=== PATIENT | female | born 1985 | race Caucasian/White ===

== ENCOUNTER 2017-05-29 19:29 | Emergency (ER) | payer OTHER ==
[2017-05-29 20:05] VITALS: TEMP 98
[2017-05-29] MEDS ORDERED: SODIUM CHLORIDE 0.9% 1,000 ML IV STA (20:33)
[2017-05-29] MEDS ORDERED: KETOROLAC 30 MG/ML 1 ML VIAL IVP STA (20:33)
--- NOTE | 2017-05-29 20:36 | ED ---
General Adult HPI - General Chief complaint: Extremity Injury, Lower Stated complaint: fall/knee & leg pain Time Seen by Provider: 05/29/17 20:28 Source: patient, RN notes reviewed Mode of arrival: ambulatory Limitations: no limitations - History of Present Illness Initial comments: 31-year-old female presents to the emergency Department chief complaint of right knee pain and redness. She did fall last Tuesday but she states she did not hit her right knee. She states now since yesterday her right knee is red and swollen it is hot to touch. She states she has pain with movement of the knee. Patient states she had something similar to this and right hip in the past that improved with steroids. She denies any abrasion or skin trauma. She states it hurts to move and it hurts to touch the area. Patient denies any surgeries on the knee in the past. Patient denies any other symptoms at this time. Patient denies any recent fever, chills, shortness of breath, chest pain, back pain, abdominal pain, nausea vomiting, numbness or tingling, dysuria or hematuria, constipation or diarrhea, headaches or visual changes, or any other current symptoms. - Related Data Home Medications Medication Instructions Recorded Confirmed Glycopyrrolate [Robinul Forte] 2 mg PO DAILY 05/29/17 05/29/17 QUEtiapine XR [SEROquel XR] 200 mg PO HS 05/29/17 05/29/17 busPIRone HCl [Buspar] 10 mg PO TID PRN 05/29/17 05/29/17 clonazePAM [KlonoPIN] 0.5 mg PO BID PRN 05/29/17 05/29/17 levETIRAcetam [Keppra] 500 mg PO Q12HR 05/29/17 05/29/17 Previous Rx's Medication Instructions Recorded Sulfamethox-Tmp 800-160Mg [Bactrim 2 each PO Q12HR #56 tab 05/29/17 DS 800-160 mg] Allergies Allergy/AdvReac Type Severity Reaction Status Date / Time amoxicillin Allergy Unknown Verified 05/29/17 21:14 Childhood Review of Systems ROS Statement: Those systems with pertinent positive or pertinent negative responses have been documented in the HPI. ROS Other: All systems not noted in ROS Statement are negative. Past Medical History Past Medical History: Seizure Disorder Additional Past Medical History / Comment(s): Chiari malformation History of Any Multi-Drug Resistant Organisms: None Reported Past Surgical History: Section, Cholecystectomy, Orthopedic Surgery Additional Past Surgical History / Comment(s): facial reconstruction, right arm surgery Past Psychological History: Anxiety Smoking Status: Current some day smoker Past Alcohol Use History: None Reported Past Drug Use History: None Reported General Exam - General Exam Comments Initial Comments: General: The patient is awake and alert, in no distress, and does not appear acutely ill. Neck: The neck is supple, there is no tenderness. Cardiovascular: There is a regular rate and rhythm. No murmur, rub or gallop is appreciated. Respiratory: Lungs are clear to auscultation, respirations are non-labored, breath sounds are equal. No wheezes, stridor, rales, or rhonchi. Musculoskeletal: Sensation intact with 2+ pulses throughout the right lower externa. Fund motion of right hip. Patient has pain with range of motion of the right knee. Does appear to be read swollen is warm to touch. No pain around the motion of the right ankle. There is appear to be an effusion. Neurological: CN II-XII intact, There are no obvious motor or sensory deficits. Coordination appears grossly intact. Speech is normal. Skin: Skin is warm and dry and no rashes or lesions are noted. Psychiatric: Normal mood and affect. Limitations: no limitations Course Vital Signs 05/29/17 20:00 Temperature 98.0 F Pulse Rate 118 H Respiratory 18 Rate Blood Pressure 138/82 Medical Decision Making - Medical Decision Making 31-year-old female presents with what appears to be right knee pain with swelling and redness. At this time patient's lab work and x-ray has been reviewed. At this time the patient was informed of the severity of the infection we did discuss that she needs IV antibiotics. We discussed that this could be a septic joint that she could lose her leg entirely or develop sepsis that could lead to . We discussed related to admit her for inpatient antibiotics. We discussed the case with on-call [facility] who does agree to the admission as well. The patient however will not listen to reason. She states that she has spread cases: She has no one to help her she states that she will be leaving. We did discuss these rest we did discuss the severity of her choice and she stated that she will be back tomorrow after she drops her at school. This time we did put her on Bactrim we discussed this is not strong enough and will not take care of the infection that she is going to leave the like her to have these something. We did discuss that we like her to return to the emergency department as soon as she is able. Patient stated that she understood the risks of leaving but she will still be bleeding at this time. - Lab Data Result diagrams: 05/29/17 20:50 05/29/17 20:50 Lab Results 05/29/17 05/29/17 Range/Units 20:50 20:50 WBC 16.5 H (3.8-10.6) k/uL RBC 4.76 (3.80-5.40) m/uL Hgb 13.2 (11.4-16.0) gm/dL Hct 40.4 (34.0-46.0) % MCV 85.0 (80.0-100.0) fL MCH 27.8 (25.0-35.0) pg MCHC 32.7 (31.0-37.0) g/dL RDW 13.0 (11.5-15.5) % Plt Count 325 (150-450) k/uL Neutrophils % 87 % Lymphocytes % 7 % Monocytes % 4 % Eosinophils % 1 % Basophils % 0 % Neutrophils # 14.3 H (1.3-7.7) k/uL Lymphocytes # 1.1 (1.0-4.8) k/uL Monocytes # 0.7 (0-1.0) k/uL Eosinophils # 0.2 (0-0.7) k/uL Basophils # 0.0 (0-0.2) k/uL ESR Cancelled Sodium 137 (137-145) mmol/L Potassium 4.1 (3.5-5.1) mmol/L Chloride 99 (98-107) mmol/L Carbon Dioxide 27 (22-30) mmol/L Anion Gap 11 mmol/L BUN 11 (7-17) mg/dL Creatinine 0.60 (0.52-1.04) mg/dL Est GFR (MDRD) Af Amer >60 (>60 ml/min/1.73 sqM) Est GFR (MDRD) Non-Af >60 (>60 ml/min/1.73 sqM) Glucose 128 H (74-99) mg/dL Calcium 9.7 (8.4-10.2) mg/dL Total Bilirubin 0.7 (0.2-1.3) mg/dL AST 21 (14-36) U/L ALT 30 (9-52) U/L Alkaline Phosphatase 85 (38-126) U/L C-Reactive Protein 182.8 H (<10.0) mg/L Total Protein 7.2 (6.3-8.2) g/dL Albumin 4.1 (3.5-5.0) g/dL - Radiology Data Radiology results: report reviewed, image reviewed Disposition Clinical Impression: Septic joint of right knee joint Disposition: Left Against Medical Advice Condition: Undetermined Additional Instructions: Please return to the emergency department. Prescriptions: Sulfamethox-Tmp 800-160Mg [Bactrim DS 800-160 mg] 2 each PO Q12HR #56 tab Referrals: Drew Felix DO [Primary Care Provider] - 1-2 days Time of Disposition: 22:41
[2017-05-29 21:09] LABS: Basophils % (A) 0 %; Eosinophils # (A) 0.2 k/uL (0-0.7); Eosinophils % (A) 1 %; HCT 40.4 % (34.0-46.0); HGB 13.2 gm/dL (11.4-16.0); Lymphocytes # (A) 1.1 k/uL (1.0-4.8); Lymphocytes % (A) 7 %; MCH 27.8 pg (25.0-35.0); MCHC 32.7 g/dL (31.0-37.0); Mean Platelet Volume 7.2; Monocytes # (A) 0.7 k/uL (0-1.0); Monocytes % (A) 4 %; Neutrophils # (A) 14.3 k/uL (1.3-7.7); Neutrophils % (A) 87 %; Platelet Count 325 k/uL (150-450); RBC 4.76 m/uL (3.80-5.40); WBC 16.5 k/uL (3.8-10.6)
[2017-05-29 21:31] LABS: ALT 30 U/L (9-52); AST 21 U/L (14-36); Albumin 4.1 g/dL (3.5-5.0); Alkaline Phosphatase 85 U/L (38-126); Anion Gap 11 mmol/L; Blood Urea Nitrogen 11 mg/dL (7-17); Calcium 9.7 mg/dL (8.4-10.2); Carbon Dioxide 27 mmol/L (22-30); Chloride 99 mmol/L (98-107); Glucose 128 mg/dL (74-99); Potassium 4.1 mmol/L (3.5-5.1); Sodium 137 mmol/L (137-145); Total Bilirubin 0.7 mg/dL (0.2-1.3); Total Protein 7.2 g/dL (6.3-8.2)
--- NOTE | 2017-05-29 21:39 | XR ---
EXAMINATION TYPE: XR knee complete RT DATE OF EXAM: 05/29/2017 CLINICAL HISTORY: Right knee pain after fall TECHNIQUE: Three views of the right knee are obtained. COMPARISON: None. FINDINGS: There is no acute fracture/dislocation evident in right knee. The tri-compartment joint s paces appear within normal limits. There is soft tissue swelling in the suprapatellar region overlyin g the quadriceps tendon with obscuration of the quadriceps tendon and suprapatellar joint effusion. IMPRESSION: 1. There is no acute fracture or dislocation in the right knee. 2. Soft tissue swelling over the quadriceps tendon. This may be related to soft tissue injury or tend inous injury. MR could be performed for further evaluation if clinically indicated. 3. Suprapatellar joint effusion.
[2017-05-29] MEDS ORDERED: ACETAMINOPHEN TAB 500 MG TAB PO STA (21:45)
[2017-05-29 21:49] LABS: C Reactive Protein 182.8 mg/L (<10.0)
[2017-05-29] MEDS ORDERED: HYDROmorphone 0.5 MG/0.5 ML SYRINGE IVP STA (22:20)
[2017-05-29] MEDS ORDERED: SULFAMETH-TMP DS STARTER PACK 2 TAB BTL PO STA (22:30)
[2017-05-29 22:50] VITALS: BP 140/82; PULSE 82; RESP 20
== END 2017-05-29 22:40 | disposition left against medical advice (07) ==
LOC: EC 19:29
DX: M00.9 Pyogenic arthritis, unspecified (principal); G40.909 Epilepsy, unspecified, not intractable, without status epilepticus; Q07.00 Arnold-Chiari syndrome without spina bifida or hydrocephalus; F41.9 Anxiety disorder, unspecified; F17.200 Nicotine dependence, unspecified, uncomplicated; Z79.899 Other long term (current) drug therapy; Z88.0 Allergy status to penicillin
CPT/HCPCS: 36415; 80053; 85652; 85025; 86140; 87040; 73562; 99283; 96374; 96361; J1885

== ENCOUNTER 2017-09-22 14:16 | Emergency (ER) | payer OTHER ==
[2017-09-22 14:26] VITALS: BP 116/80; PULSE 101; RESP 20; TEMP 97.6
[2017-09-22] MEDS ORDERED: ONDANSETRON 4 MG/2 ML VIAL IVP STA (14:29)
[2017-09-22] MEDS ORDERED: MORPHINE SULFATE 4 MG/ML SYRINGE IM STA (14:29)
[2017-09-22] MEDS ORDERED: KETOROLAC 60 MG/2 ML VIAL IM STA (14:29)
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
== END 2017-09-22 15:10 | disposition home or self-care (01) ==
LOC: EC 14:16
DX: L73.2 Hidradenitis suppurativa (principal); G40.909 Epilepsy, unspecified, not intractable, without status epilepticus; Q07.00 Arnold-Chiari syndrome without spina bifida or hydrocephalus; F41.9 Anxiety disorder, unspecified; Z87.891 Personal history of nicotine dependence; Z86.14 Personal history of Methicillin resistant Staphylococcus aureus infection; Z98.890 Other specified postprocedural states; Z79.899 Other long term (current) drug therapy
CPT/HCPCS: 87070; 87205; 99283; 10060; 96374; 96372 ×2; J2270; J2405; J1885

== ENCOUNTER 2017-11-26 06:32 | Observation (INO) | payer OTHER ==
[2017-11-26] MEDS ORDERED: MORPHINE SULFATE 4 MG/ML SYRINGE IVP STA ×2 (07:05→07:43)
[2017-11-26] MEDS ORDERED: KETOROLAC 30 MG/ML 1 ML VIAL IVP STA (07:22)
[2017-11-26 07:25] LABS: ALT 29 U/L (9-52); AST 46 U/L (14-36); Albumin 4.5 g/dL (3.5-5.0); Alkaline Phosphatase 80 U/L (38-126); Anion Gap 14 mmol/L; Blood Urea Nitrogen 16 mg/dL (7-17); Calcium 9.6 mg/dL (8.4-10.2); Carbon Dioxide 25 mmol/L (22-30); Chloride 100 mmol/L (98-107); Glucose 112 mg/dL (74-99); Magnesium 2.1 mg/dL (1.6-2.3); Potassium 3.8 mmol/L (3.5-5.1); Sodium 139 mmol/L (137-145); Total Bilirubin 0.6 mg/dL (0.2-1.3); Total Protein 7.8 g/dL (6.3-8.2)
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
[2017-11-26 07:29] LABS: Basophils % (A) 0 %; Eosinophils # (A) 0.1 k/uL (0-0.7); Eosinophils % (A) 1 %; HCT 40.2 % (34.0-46.0); HGB 13.1 gm/dL (11.4-16.0); Lymphocytes # (A) 0.8 k/uL (1.0-4.8); Lymphocytes % (A) 5 %; MCH 27.4 pg (25.0-35.0); MCHC 32.7 g/dL (31.0-37.0); MCV 83.8 fL (80.0-100.0); Mean Platelet Volume 7.7; Monocytes # (A) 0.6 k/uL (0-1.0); Monocytes % (A) 3 %; Neutrophils # (A) 15.4 k/uL (1.3-7.7); Neutrophils % (A) 90 %; Platelet Count 308 k/uL (150-450); RBC 4.79 m/uL (3.80-5.40); RDW 14.5 % (11.5-15.5); WBC 17.1 k/uL (3.8-10.6)
[2017-11-26 07:55] LABS: INR 1.1 (<1.2); Partial Thromboplastin Time 23.7 sec (22.0-30.0); Prothrombin Time 10.8 sec (9.0-12.0)
--- NOTE | 2017-11-26 08:05 | XR ---
EXAMINATION TYPE: XR chest 2V DATE OF EXAM: 11/26/2017 HISTORY: Chest Pain. REFERENCE: Previous study dated 02/28/2017. FINDINGS: Heart is mildly enlarged. Lungs are clear. Pleural spaces are clear. There is slight irregu larity of the left sixth rib. I could not exclude an undisplaced fracture. IMPRESSION: 1. NO ACTIVE CARDIOPULMONARY ABNORMALITY. 2. I COULD NOT EXCLUDE AN UNDISPLACED LEFT SIXTH RIB FRACTURE.
[2017-11-26 08:06] LABS: Troponin I 0.649 ng/mL (0.000-0.034)
--- NOTE | 2017-11-26 08:38 | ECHOF ---
Referral Reason:CP MEASUREMENTS -------- HEIGHT: 175.3 cm WEIGHT: 68.0 kg BP: IVSd: 1.2 cm (0.6 - 1.1) LVIDd: 3.3 cm (3.9 - 5.3) LVPWd: 1.3 cm (0.6 - 1.1) IVSs: 1.6 cm LVIDs: 3.1 cm LVPWs: 1.8 cm Ao Diam: 3.1 cm (2.0 - 3.7) AV Cusp: 2.2 cm (1.5 - 2.6) LA Diam: 3.4 cm (2.7 - 3.8) MV EXCURSION: 13.536 mm (> 18.000) MV EF SLOPE: 60 mm/s (70 - 150) EPSS: 0.4 cm MV E Albert: 0.64 m/s MV DecT: 167 ms MV A Albert: 0.55 m/s MV E/A Ratio: 1.15 RAP: 5.00 mmHg RVSP: 17.97 mmHg FINDINGS -------- Sinus rhythm. This was a technically good study. The left ventricular size is normal. There is borderline concentric left ventricular hypertrophy. Overall left ventricular systolic function is normal with, an EF between 55 - 60 %. The right ventricle is normal in size and function. The left atrium is normal in size. The right atrium is normal in size. The aortic valve is trileaflet, and appears structurally normal. No aortic stenosis or regurgitation. The mitral valve leaflets are mildly thickened. There is trace mitral regurgitation. Trace tricuspid regurgitation present. The right ventricular systolic pressure, as measured by Dopp ler, is 17.97mmHg. Trace/mild (physiologic) pulmonic regurgitation. The aortic root size is normal. Normal inferior vena cava with normal inspiratory collapse consistent with estimated right atrial pre ssure of 5 mmHg. There is a small, generalized pericardial effusion present. CONCLUSIONS -------- 1. Sinus rhythm. 2. This was a technically good study. 3. The left ventricular size is normal. 4. There is borderline concentric left ventricular hypertrophy. 5. Overall left ventricular systolic function is normal with, an EF between 55 - 60 %. 6. The right ventricle is normal in size and function. 7. The left atrium is normal in size. 8. The right atrium is normal in size. 9. The aortic valve is trileaflet, and appears structurally normal. No aortic stenosis or regurgitati on. 10. The mitral valve leaflets are mildly thickened. 11. There is trace mitral regurgitation. 12. Trace tricuspid regurgitation present. 13. The right ventricular systolic pressure, as measured by Doppler, is 17.97mmHg. 14. Trace/mild (physiologic) pulmonic regurgitation. 15. The aortic root size is normal. 16. Normal inferior vena cava with normal inspiratory collapse consistent with estimated right atrial pressure of 5 mmHg. 17. There is a small, generalized pericardial effusion present. HUMAN RESOURCES TALENT MANAGER: Carli French RDCS
[2017-11-26] MEDS ORDERED: NALOXONE 0.4 MG/ML 1 ML VIAL IV PRN (09:37)
[2017-11-26] MEDS ORDERED: ONDANSETRON 4 MG/2 ML VIAL IVP PRN (09:37)
[2017-11-26] MEDS: MORPHINE SULFATE 4 MG/ML SYRINGE IV PRN ×2 (09:49→13:16)
[2017-11-26] MEDS ORDERED: ACETAMINOPHEN TAB 500 MG TAB PO STA (11:42)
[2017-11-26] MEDS: IBUPROFEN 600 MG TAB PO SCH ×3 (11:47→23:53)
[2017-11-26 13:59] LABS: Troponin I 0.753 ng/mL (0.000-0.034)
[2017-11-26 14:00] LABS: Creatine Kinase MB 4.3 ng/mL (0.0-2.4)
[2017-11-26 14:21] LABS: Appearance,Urine Turbid (Clear); Bilirubin,Urine 2+ (Negative); Blood,Urine Moderate (Negative); Color,Urine Dark Brown; Glucose,Urine (UA) Negative (Negative); Ketones,Urine 2+ (Negative); Leukocyte Esterase,Urine Trace (Negative); Mucus,Urine Many /hpf; Nitrite,Urine Negative (Negative); PH, Urine 6.5 (5.0-8.0); Protein,Urine 2+ (Negative); RBC,Urine 30 /hpf (0-5); Specific Gravity,Urine 1.038 (1.001-1.035); Squamous Epithelial Cell,Urine 38 /hpf (0-4); Urobilinogen,Urine >12.0 mg/dL (<2.0); WBC,Urine 20 /hpf (0-5)
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
[2017-11-26] MEDS ORDERED: SODIUM CHLORIDE 0.9% 1,000 ML IV ONE (14:35)
[2017-11-26 14:36] LABS: Amphetamine Screen,Urine Detected (NotDetected); Barbiturate Screen,Urine Not Detected (NotDetected); Benzodiazepines Screen,Urine Not Detected (NotDetected); Cocaine Screen,Urine Not Detected (NotDetected); Methadone Screen, Urine Not Detected (NotDetected); Opiate Screen,Urine Detected (NotDetected); Oxycodone Screen, Urine Not Detected (NotDetected); Phencyclidine Screen,Urine Not Detected (NotDetected); Tricyclic Antidepressant,Urine Not Detected (NotDetected); Urn Cannabinoid Scrn Detected (NotDetected)
[2017-11-26] MEDS ORDERED: PANTOPRAZOLE 40 MG TABLET PO STA (14:51)
[2017-11-26] MEDS: SODIUM CHLORIDE 0.9% 1,000 ML IV SCH ×2 (15:35→23:52)
--- NOTE | 2017-11-26 17:20 | CONS ---
CONSULTATION Mrs. Wilson is a 32-year-old female who presented to the emergency room with symptoms of chest discomfort. She had recent upper respiratory infection, has been complaining of chest discomfort on and off for the last few days, much worse now, worse supine and better sitting up and has some respirophasic pattern to it. The patient has a history of chronic pain. She had history of narcotic abuse and traumatic brain injury in the past. She denies any change in her breathing. She denies any dizziness or palpitation. She denies any peripheral edema. No PND. No orthopnea. Her coronary risk factors are negative for diabetes or hypertension. She is a smoker. MEDICATION: Trazodone and Seroquel. REVIEW OF SYSTEMS: RESPIRATORY SYSTEM: She had dyspnea on exertion. She had recent upper respiratory infection. GI SYSTEM: No recent GI bleed. No peptic ulcer disease. SYSTEM: No dysuria or hematuria. NERVOUS SYSTEM: No history of stroke or seizure. PHYSICAL EXAMINATION: A 32-year-old female, alert, oriented, in no apparent distress. Blood pressure 108/50 with a heart in 90s. HEAD: Normocephalic. EYES: Sclerae anicteric. NECK: Good upstroke. No bruit. No jugular venous distention. LUNGS: Clear to auscultation. HEART: Regular rate and rhythm. S1, S2. No S3. No rub. ABDOMEN: Soft, nontender. Positive bowel sounds. No organomegaly. EXTREMITIES: No edema. Intact pulses. LAB DATA: Lab data revealed a hemoglobin 13.1, BUN and creatinine 16 and 0.55. Troponin 0.649 and 0.753. She had amphetamine, methamphetamine and marijuana positive screen. Her EKG revealed sinus mechanism with [place] depression, ST elevation consistent with acute pericarditis. Her echocardiogram revealed a preserved left ventricular size and systolic function with no segmental wall motion abnormality. IMPRESSION: 1. Acute pericarditis. 2. Chronic tobacco use. 3. History of substance abuse. RECOMMENDATION: Patient will be started on nonsteroidal as well as colchicine. I will obtain an evaluation of her sedimentation rate. We will continue to follow her symptoms and if she remains stable I would expect she should be able to be discharged home in the next 24 hours. Thank you for this consult. We will follow with you. MMODL / IJN: [id number] /
[2017-11-26 17:27] LABS: Amorphous Sediment,Urine Rare /hpf; Appearance,Urine Turbid (Clear); Bilirubin,Urine 1+ (Negative); Blood,Urine Negative (Negative); Color,Urine Yellow; Glucose,Urine (UA) Negative (Negative); Ketones,Urine Trace (Negative); Leukocyte Esterase,Urine Negative (Negative); Mucus,Urine Rare /hpf; Nitrite,Urine Negative (Negative); PH, Urine 6.5 (5.0-8.0); Protein,Urine 1+ (Negative); RBC,Urine 1 /hpf (0-5); Specific Gravity,Urine 1.029 (1.001-1.035); Squamous Epithelial Cell,Urine 1 /hpf (0-4)
[2017-11-26 19:47] LABS: Creatine Kinase MB 3.8 ng/mL (0.0-2.4); Troponin I 0.623 ng/mL (0.000-0.034)
[2017-11-26 19:51] VITALS: BMI 22.1
[2017-11-26] MEDS ORDERED: QUEtiapine 50 MG TAB PO PRN (20:15)
[2017-11-26] MEDS: PANTOPRAZOLE 40 MG TABLET PO SCH (20:57)
[2017-11-26] MEDS: COLCHICINE 0.6 MG EACH PO SCH (20:58)
[2017-11-26] MEDS ORDERED: traZODone HCL 50 MG TAB PO SCH (21:00)
[2017-11-27] MEDS: IBUPROFEN 600 MG TAB PO SCH ×2 (06:07→10:49)
[2017-11-27] MEDS: PANTOPRAZOLE 40 MG TABLET PO SCH (06:09)
[2017-11-27 06:53] LABS: Anion Gap 9 mmol/L; Blood Urea Nitrogen 12 mg/dL (7-17); Calcium 8.7 mg/dL (8.4-10.2); Carbon Dioxide 21 mmol/L (22-30); Chloride 110 mmol/L (98-107); Glucose 112 mg/dL (74-99); Sodium 140 mmol/L (137-145)
[2017-11-27 07:21] LABS: ALT 66 U/L (9-52); AST 64 U/L (14-36); Alkaline Phosphatase 156 U/L (38-126); Anion Gap 9 mmol/L; Blood Urea Nitrogen 10 mg/dL (7-17); Calcium 8.6 mg/dL (8.4-10.2); Carbon Dioxide 22 mmol/L (22-30); Chloride 108 mmol/L (98-107); Glucose 113 mg/dL (74-99); Potassium 3.4 mmol/L (3.5-5.1); Sodium 139 mmol/L (137-145); Total Bilirubin 0.4 mg/dL (0.2-1.3); Total Protein 5.7 g/dL (6.3-8.2)
[2017-11-27 07:36] LABS: Basophils % (A) 0 %; Eosinophils # (A) 0.1 k/uL (0-0.7); Eosinophils % (A) 1 %; HCT 31.3 % (34.0-46.0); HGB 10.3 gm/dL (11.4-16.0); Lymphocytes # (A) 0.8 k/uL (1.0-4.8); Lymphocytes % (A) 6 %; MCH 27.5 pg (25.0-35.0); MCHC 33.1 g/dL (31.0-37.0); MCV 83.3 fL (80.0-100.0); Mean Platelet Volume 7.5; Monocytes # (A) 0.5 k/uL (0-1.0); Monocytes % (A) 3 %; Neutrophils # (A) 12.2 k/uL (1.3-7.7); Neutrophils % (A) 89 %; Platelet Count 217 k/uL (150-450); RBC 3.75 m/uL (3.80-5.40); RDW 14.4 % (11.5-15.5); WBC 13.6 k/uL (3.8-10.6)
[2017-11-27] MEDS: COLCHICINE 0.6 MG EACH PO SCH (08:33)
[2017-11-27] MEDS: SODIUM CHLORIDE 0.9% 1,000 ML IV SCH (08:33)
--- NOTE | 2017-11-27 11:27 | P.PN ---
Subjective Mrs. Wilson is seen and examined sleeping in bed. Respirations are equal and unlabored. Upon waking her up she c/o ongoing pain in the chest that is intermittent and unrelieved with current regimen. Her pain continues to be worse while she is lying down. Mild relief when she leans forward. Echocardiogram obtained yesterday reveals preserved left ventricular systolic function with ejection fraction 55-60%, aortic valve trileaflet and structurally normal, mitral valve mildly thickened, trace MR and trace TR noted. Small generalized pericardial effusion. Laboratory data reviewed, hemoglobin 10.3, platelets 217, sodium 139, potassium 3.4, creatinine 0.4, AST 64, ALP 66, alk phos 156, ESR 49. Blood pressure this morning 90/55 heart rate 104 afebrile maintaining oxygen saturation on room air. Objective - Vital Signs Vital signs: Vital Signs Temp 97.3 F L 11/27/17 08:44 Pulse 104 H 11/27/17 08:44 Resp 18 11/27/17 08:44 BP 90/55 11/27/17 08:44 Pulse Ox 98 11/27/17 08:44 Intake & Output 11/26/17 11/27/17 11/27/17 18:59 06:59 18:59 Intake Total 1000 Balance 1000 Weight 66.3 kg Intake: Amount of Fluid Infused ( 1000 ml) Other: Voiding Method Toilet # Voids 1 - Exam GENERAL: Well-appearing, well-nourished and in no acute distress. NECK: Supple without JVD or thyromegaly. LUNGS: Breath sounds clear to auscultation bilaterally. Respiration equal and unlabored. No wheezes, rales or rhonchi. HEART: Regular rate and rhythm without murmurs, rubs or gallops. S1 and S2 heard. EXTREMITIES: Normal range of motion, no edema. No clubbing or cyanosis. Peripheral pulses intact. - Labs CBC & Chem 7: 11/27/17 07:03 11/27/17 07:03 Labs: Abnormal Lab Results - Last 24 Hours (Table) 11/26/17 11/26/17 11/26/17 Range/Units 06:48 12:50 14:06 WBC (3.8-10.6) k/uL RBC (3.80-5.40) m/uL Hgb (11.4-16.0) gm/dL Hct (34.0-46.0) % Neutrophils # (1.3-7.7) k/uL Lymphocytes # (1.0-4.8) k/uL ESR 49 H (0-20) mm/hr Potassium (3.5-5.1) mmol/L Chloride (98-107) mmol/L Carbon Dioxide (22-30) mmol/L Creatinine (0.52-1.04) mg/dL Glucose (74-99) mg/dL AST (14-36) U/L ALT (9-52) U/L Alkaline Phosphatase (38-126) U/L CK-MB (CK-2) 4.3 H* (0.0-2.4) ng/mL Troponin I 0.753 H* (0.000-0.034) ng/mL Total Protein (6.3-8.2) g/dL Albumin (3.5-5.0) g/dL Urine Appearance Turbid H (Clear) Ur Specific Newman 1.038 H (1.001-1.035) Urine Protein 2+ H (Negative) Urine Ketones 2+ H (Negative) Urine Blood Moderate H (Negative) Urine Bilirubin 2+ H (Negative) Ur Leukocyte Esterase Trace H (Negative) Urine RBC 30 H (0-5) /hpf Urine WBC 20 H (0-5) /hpf Ur Squamous Epith Cells 38 H (0-4) /hpf Amorphous Sediment (None) /hpf Urine Mucus Many H (None) /hpf Urine Opiates Screen Detected H (NotDetected) Ur Amphetamines Screen Detected H (NotDetected) U Methamphetamines Scrn Detected H (NotDetected) U Marijuana (THC) Screen Detected H (NotDetected) 11/26/17 11/26/17 11/27/17 Range/Units 17:00 18:49 05:54 WBC (3.8-10.6) k/uL RBC (3.80-5.40) m/uL Hgb (11.4-16.0) gm/dL Hct (34.0-46.0) % Neutrophils # (1.3-7.7) k/uL Lymphocytes # (1.0-4.8) k/uL ESR (0-20) mm/hr Potassium (3.5-5.1) mmol/L Chloride 110 H (98-107) mmol/L Carbon Dioxide 21 L (22-30) mmol/L Creatinine 0.40 L (0.52-1.04) mg/dL Glucose 112 H (74-99) mg/dL AST (14-36) U/L ALT (9-52) U/L Alkaline Phosphatase (38-126) U/L CK-MB (CK-2) 3.8 H* (0.0-2.4) ng/mL Troponin I 0.623 H* (0.000-0.034) ng/mL Total Protein (6.3-8.2) g/dL Albumin (3.5-5.0) g/dL Urine Appearance Turbid H (Clear) Ur Specific Newman (1.001-1.035) Urine Protein 1+ H (Negative) Urine Ketones Trace H (Negative) Urine Blood (Negative) Urine Bilirubin 1+ H (Negative) Ur Leukocyte Esterase (Negative) Urine RBC (0-5) /hpf Urine WBC (0-5) /hpf Ur Squamous Epith Cells (0-4) /hpf Amorphous Sediment Rare H (None) /hpf Urine Mucus Rare H (None) /hpf Urine Opiates Screen (NotDetected) Ur Amphetamines Screen (NotDetected) U Methamphetamines Scrn (NotDetected) U Marijuana (THC) Screen (NotDetected) 11/27/17 11/27/17 Range/Units 07:03 07:03 WBC 13.6 H (3.8-10.6) k/uL RBC 3.75 L (3.80-5.40) m/uL Hgb 10.3 L (11.4-16.0) gm/dL Hct 31.3 L (34.0-46.0) % Neutrophils # 12.2 H (1.3-7.7) k/uL Lymphocytes # 0.8 L (1.0-4.8) k/uL ESR (0-20) mm/hr Potassium 3.4 L (3.5-5.1) mmol/L Chloride 108 H (98-107) mmol/L Carbon Dioxide (22-30) mmol/L Creatinine 0.40 L (0.52-1.04) mg/dL Glucose 113 H (74-99) mg/dL AST 64 H (14-36) U/L ALT 66 H (9-52) U/L Alkaline Phosphatase 156 H (38-126) U/L CK-MB (CK-2) (0.0-2.4) ng/mL Troponin I (0.000-0.034) ng/mL Total Protein 5.7 L (6.3-8.2) g/dL Albumin 3.0 L (3.5-5.0) g/dL Urine Appearance (Clear) Ur Specific Newman (1.001-1.035) Urine Protein (Negative) Urine Ketones (Negative) Urine Blood (Negative) Urine Bilirubin (Negative) Ur Leukocyte Esterase (Negative) Urine RBC (0-5) /hpf Urine WBC (0-5) /hpf Ur Squamous Epith Cells (0-4) /hpf Amorphous Sediment (None) /hpf Urine Mucus (None) /hpf Urine Opiates Screen (NotDetected) Ur Amphetamines Screen (NotDetected) U Methamphetamines Scrn (NotDetected) U Marijuana (THC) Screen (NotDetected) Assessment and Plan Assessment: ASSESSMENT Acute pericarditis Chronic nicotine dependence History of substance abuse PLAN Stable from a cardiac perspective. Echocardiogram reveals preserved LV systolic function. No evidence of valvular heart disease. She should be discharged home on colchicine for the next 3-4 weeks as well as anti- inflammatories as needed for pain relief. Follow-up with Dr. Quinn in 2-3 weeks. Nurse Practitioner note has been reviewed, I agree with a documented findings and plan of care. Patient was seen and examined.
[2017-11-27 11:42] VITALS: BP 95/57; PULSE 98; RESP 16; TEMP 98.8
--- NOTE | 2017-11-27 12:30 | P.DS ---
Providers Date of admission: 11/26/17 09:37 Expected date of discharge: 11/27/17 Attending physician: Musa Ferguson Consults: 11/26/17 09:37 Consult Physician Routine Consulting Provider: Aiden Quinn Consult Reason/Comments: Acute pericarditis, myocarditis Do you want consulting provider notified?: Yes Primary care physician: Drew Felix - Discharge Diagnosis(es) (1) Acute pericarditis Current Visit: Yes Status: Acute (2) Leukocytosis Current Visit: Yes Status: Acute (3) Abnormal urinalysis Current Visit: Yes Status: Acute (4) Narcotic abuse, continuous Current Visit: Yes Status: Acute (5) History of heroin abuse Current Visit: Yes Status: Acute Hospital Course: The patient is a 32-year-old female with a history of fibromyalgia chronic pain heroin and narcotic abuse and traumatic brain injury presented to the ER with chief complaint of chest pain and was subsequently admitted with acute pericarditis triggered by a viral URI. On admission the patient had diffuse ST elevation most noticeable in the left precordial leads and had elevated cardiac troponins, 2-D echocardiogram showed normal ejection fraction without small pericardial effusion. She was initially started on aspirin, and morphine but her regimen was changed to colchicine and ibuprofen. She was monitored for the next 24 hours and did well with no complications. She was subsequently discharged home in stable condition with a prescription for colchicine and instructed to follow-up with Dr. Qunin in 3 weeks. This discharge process took approximately 30 minutes. New prescriptions at discharge Colchicine 0.6 g by mouth twice a day #60 Patient Condition at Discharge: Stable Plan - Discharge Summary New Discharge Prescriptions: New Colchicine [Colcrys] 0.6 mg PO BID #60 each No Action traZODone HCL 150 mg PO HS QUEtiapine [SEROquel] 50 mg PO HS PRN PRN Reason: Insomnia Discharge Medication List QUEtiapine [SEROquel] 50 mg PO HS PRN 11/26/17 [History] traZODone HCL 150 mg PO HS 11/26/17 [History] Colchicine [Colcrys] 0.6 mg PO BID #60 each 11/27/17 [Rx] Follow up Appointment(s)/Referral(s): Aiden Quinn MD [STAFF PHYSICIAN] - 3 Weeks Drew Felix DO [Primary Care Provider] - 1-2 days Discharge Disposition: HOME SELF-CARE
== END 2017-11-27 14:54 | disposition home or self-care (01) ==
LOC: EC 06:32 → 6SEL 09:37
PROVIDERS: ADMIT Internal Medicine; ATTEND Internal Medicine
DX: I30.9 Acute pericarditis, unspecified (principal); D72.829 Elevated white blood cell count, unspecified; R82.90 Unspecified abnormal findings in urine; F11.10 Opioid abuse, uncomplicated; R79.89 Other specified abnormal findings of blood chemistry; G89.29 Other chronic pain; F41.9 Anxiety disorder, unspecified; M79.7 Fibromyalgia; Z90.49 Acquired absence of other specified parts of digestive tract; F17.200 Nicotine dependence, unspecified, uncomplicated; Z87.820 Personal history of traumatic brain injury; Z79.899 Other long term (current) drug therapy; Z86.14 Personal history of Methicillin resistant Staphylococcus aureus infection
CPT/HCPCS: 99285; 96374 ×2; 96375 ×2; 96376 ×4; 36415; 93005; 93306; 80053 ×2; 80048; 85652; 82550; 82553; 83605; 83735 ×2; 84484; 85025 ×2; 85610; 85730; 81001; 81025; 87040; 80306; 71046; G0378 ×2; J2270; J1885

== ENCOUNTER 2017-12-04 16:42 | Emergency (ER) | payer OTHER ==
[2017-12-04 16:56] VITALS: BP 111/70; PULSE 99; RESP 18; TEMP 97.4
[2017-12-04] MEDS ORDERED: TOPICAL SKIN ADHESIVE 1 EACH AMP TOPICAL ONE (17:07)
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
== END 2017-12-04 17:40 | disposition home or self-care (01) ==
LOC: EC 16:42
DX: S61.012A Laceration without foreign body of left thumb without damage to nail, initial encounter (principal); F41.9 Anxiety disorder, unspecified; F17.200 Nicotine dependence, unspecified, uncomplicated; Z86.14 Personal history of Methicillin resistant Staphylococcus aureus infection; Z79.899 Other long term (current) drug therapy; W26.8XXA Contact with other sharp object(s), not elsewhere classified, initial encounter; Y93.89 Activity, other specified
CPT/HCPCS: 12001; 99282

== ENCOUNTER 2018-02-23 09:26 | Emergency (ER) | payer OTHER ==
[2018-02-23 09:33] VITALS: BP 142/95; PULSE 107; RESP 16; TEMP 98.3
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
--- NOTE | 2018-02-23 10:27 | XR ---
EXAMINATION TYPE: XR foot complete RT DATE OF EXAM: 02/23/2018 CLINICAL HISTORY: Right foot pain after a fall TECHNIQUE: Frontal, lateral, and oblique images of the right foot are obtained. COMPARISON: None FINDINGS: There is no acute fracture/dislocation evident in the right foot. The joint spaces in the right foot appear within normal limits. The overlying soft tissue appears unremarkable. IMPRESSION: There is no acute fracture or dislocation in the right foot.
== END 2018-02-23 10:35 | disposition home or self-care (01) ==
LOC: EC 09:26
DX: S93.601A Unspecified sprain of right foot, initial encounter (principal); F17.200 Nicotine dependence, unspecified, uncomplicated; Z86.14 Personal history of Methicillin resistant Staphylococcus aureus infection; W10.8XXA Fall (on) (from) other stairs and steps, initial encounter; Y93.89 Activity, other specified; Y92.89 Other specified places as the place of occurrence of the external cause
CPT/HCPCS: 99283

== ENCOUNTER 2018-05-14 18:40 | Inpatient (IN) | payer OTHER ==
[2018-05-14] MEDS ORDERED: SODIUM CHLORIDE 0.9% 1,000 ML IV STA (19:02)
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
[2018-05-14 19:44] LABS: Basophils % (A) 0 %; Eosinophils # (A) 0.3 k/uL (0-0.7); Eosinophils % (A) 2 %; HCT 42.6 % (34.0-46.0); HGB 14.1 gm/dL (11.4-16.0); Lymphocytes # (A) 1.1 k/uL (1.0-4.8); Lymphocytes % (A) 9 %; MCH 27.6 pg (25.0-35.0); MCHC 33.1 g/dL (31.0-37.0); MCV 83.4 fL (80.0-100.0); Mean Platelet Volume 6.8; Monocytes # (A) 0.2 k/uL (0-1.0); Monocytes % (A) 2 %; Neutrophils # (A) 11.1 k/uL (1.3-7.7); Neutrophils % (A) 87 %; Platelet Count 280 k/uL (150-450); RBC 5.11 m/uL (3.80-5.40); RDW 15.3 % (11.5-15.5); WBC 12.8 k/uL (3.8-10.6)
[2018-05-14] MEDS ORDERED: VANCOMYCIN IV PER PHARMACY 1 EACH MISC MISCELLANE PRN (19:44)
[2018-05-14] MEDS ORDERED: PIPERACILLIN-TAZOBACTAM 3.375 GM in SODIUM CHLORIDE 0.9% 100 ML IVPB SCH (19:45)
[2018-05-14] MEDS ORDERED: CLINDAMYCIN 600 MG in DEXTROSE 5% IN WATER 50 ML IVPB SCH ×2 (19:45)
[2018-05-14] MEDS ORDERED: CLINDAMYCIN 600 MG in DEXTROSE 5% IN WATER 50 ML IVPB ONE ×2 (20:00)
[2018-05-14] MEDS ORDERED: PIPERACILLIN-TAZOBACTAM 3.375 GM in SODIUM CHLORIDE 0.9% 100 ML IVPB ONE (20:00)
--- NOTE | 2018-05-14 20:08 | XR ---
EXAMINATION TYPE: XR wrist complete RT DATE OF EXAM: 05/14/2018 CLINICAL HISTORY: Wrist pain TECHNIQUE: Frontal, lateral and oblique images of the right wrist are obtained. COMPARISON: None FINDINGS: There is no acute fracture/dislocation. Joint spaces are preserved. The overlying soft ti ssue appears unremarkable. IMPRESSION: No acute fracture or dislocation.
[2018-05-14 20:10] LABS: Appearance,Urine Cloudy (Clear); Bacteria,Urine Rare /hpf; Bilirubin,Urine Negative (Negative); Blood,Urine Negative (Negative); Color,Urine Light Yellow; Glucose,Urine (UA) Negative (Negative); Ketones,Urine Negative (Negative); Leukocyte Esterase,Urine Negative (Negative); Nitrite,Urine Negative (Negative); PH, Urine 6.5 (5.0-8.0); Protein,Urine Negative (Negative); Specific Gravity,Urine 1.007 (1.001-1.035); Squamous Epithelial Cell,Urine 8 /hpf (0-4); Urobilinogen,Urine <2.0 mg/dL (<2.0)
--- NOTE | 2018-05-14 20:11 | XR ---
EXAMINATION TYPE: XR forearm LT DATE OF EXAM: 05/14/2018 CLINICAL HISTORY: Abscess on left elbow, elbow pain TECHNIQUE: Two views of the left forearm are obtained. COMPARISON: None. FINDINGS: There is no acute fracture or dislocation. No radiopaque foreign bodies. No subcutaneous a ir. No evidence of osseous erosion. IMPRESSION: No acute fracture or dislocation.
--- NOTE | 2018-05-14 20:12 | XR ---
EXAMINATION TYPE: XR hand complete LT DATE OF EXAM: 05/14/2018 CLINICAL HISTORY: Left hand abscess, left hand pain TECHNIQUE: Frontal, lateral and oblique images of the left hand are obtained. COMPARISON: None. FINDINGS: No acute fracture or dislocation. No radiopaque foreign bodies or soft tissue swelling. No osseous erosion. No subcutaneous air. IMPRESSION: No acute fracture or dislocation. No concerning findings of infection.
[2018-05-14 20:24] LABS: ALT 64 U/L (9-52); AST 41 U/L (14-36); Albumin 4.1 g/dL (3.5-5.0); Alkaline Phosphatase 102 U/L (38-126); Anion Gap 8 mmol/L; Blood Urea Nitrogen 12 mg/dL (7-17); Calcium 9.6 mg/dL (8.4-10.2); Carbon Dioxide 25 mmol/L (22-30); Chloride 103 mmol/L (98-107); Glucose 96 mg/dL (74-99); Potassium 4.5 mmol/L (3.5-5.1); Sodium 136 mmol/L (137-145); Total Bilirubin 0.5 mg/dL (0.2-1.3); Total Protein 7.7 g/dL (6.3-8.2)
[2018-05-14] MEDS ORDERED: VANCOMYCIN 1,500 MG in SODIUM CHLORIDE 0.9% 250 ML IVPB ONE (20:30)
[2018-05-14] MEDS ORDERED: NALOXONE 0.4 MG/ML 1 ML VIAL IV PRN (21:42)
[2018-05-14] MEDS ORDERED: ACETAMINOPHEN TAB 325 MG TAB PO PRN (21:42)
[2018-05-14] MEDS ORDERED: METHADONE 10 MG TAB PO PRN (21:51)
[2018-05-14] MEDS: SODIUM CHLORIDE 0.9% 1,000 ML IV SCH (22:19)
[2018-05-14 23:20] VITALS: BMI 22.8
[2018-05-15] MEDS: CLINDAMYCIN 600 MG in DEXTROSE 5% IN WATER 50 ML IVPB SCH ×4 (04:36→13:38)
[2018-05-15] MEDS: VANCOMYCIN 1,250 MG in SODIUM CHLORIDE 0.9% 250 ML IVPB SCH ×3 (04:36→21:19)
[2018-05-15] MEDS: PIPERACILLIN-TAZOBACTAM 3.375 GM in SODIUM CHLORIDE 0.9% 100 ML IVPB SCH ×3 (05:50→21:19)
[2018-05-15 06:33] LABS: Basophils % (A) 0 %; Eosinophils # (A) 0.2 k/uL (0-0.7); Eosinophils % (A) 1 %; HCT 39.1 % (34.0-46.0); HGB 12.8 gm/dL (11.4-16.0); Lymphocytes # (A) 1.7 k/uL (1.0-4.8); Lymphocytes % (A) 13 %; MCH 27.6 pg (25.0-35.0); MCHC 32.7 g/dL (31.0-37.0); MCV 84.5 fL (80.0-100.0); Monocytes # (A) 0.3 k/uL (0-1.0); Monocytes % (A) 3 %; Neutrophils # (A) 10.2 k/uL (1.3-7.7); Neutrophils % (A) 82 %; Platelet Count 296 k/uL (150-450); RBC 4.63 m/uL (3.80-5.40); RDW 15.2 % (11.5-15.5); WBC 12.5 k/uL (3.8-10.6)
[2018-05-15 06:48] LABS: ALT 50 U/L (9-52); AST 31 U/L (14-36); Albumin 3.5 g/dL (3.5-5.0); Alkaline Phosphatase 89 U/L (38-126); Anion Gap 7 mmol/L; Blood Urea Nitrogen 11 mg/dL (7-17); Carbon Dioxide 23 mmol/L (22-30); Chloride 108 mmol/L (98-107); Glucose 107 mg/dL (74-99); Potassium 4.4 mmol/L (3.5-5.1); Sodium 138 mmol/L (137-145); Total Bilirubin 0.5 mg/dL (0.2-1.3); Total Protein 6.7 g/dL (6.3-8.2)
[2018-05-15] MEDS: METHADONE 10 MG TAB PO SCH (10:14)
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
[2018-05-15 12:33] LABS: Bilirubin, Delta 0.1 mg/dL (0.0-0.2); Bilirubin,Unconjugated 0.3 mg/dL (0.0-1.1); Total Bilirubin 0.4 mg/dL (0.2-1.3)
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
[2018-05-15] MEDS: NICOTINE 21MG/24HR PATCH TRANSDERM SCH (13:38)
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
[2018-05-15] MEDS: FAMOTIDINE 20 MG TAB PO SCH (21:19)
[2018-05-15] MEDS: SODIUM CHLORIDE 0.9% 1,000 ML IV SCH (21:19)
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
[2018-05-16] MEDS ORDERED: VANCOMYCIN TROUGH DUE 1 EACH MISC MISCELLANE ONE (04:00)
[2018-05-16] MEDS: VANCOMYCIN 1,250 MG in SODIUM CHLORIDE 0.9% 250 ML IVPB SCH ×3 (05:08→20:15)
[2018-05-16] MEDS: PIPERACILLIN-TAZOBACTAM 3.375 GM in SODIUM CHLORIDE 0.9% 100 ML IVPB SCH ×3 (05:08→21:43)
[2018-05-16] MEDS: METHADONE 10 MG TAB PO SCH (08:17)
[2018-05-16] MEDS: FAMOTIDINE 20 MG TAB PO SCH ×2 (08:18→20:16)
--- NOTE | 2018-05-16 10:47 | P.PN ---
Subjective Progress Note Date: 05/16/18 CHIEF COMPLAINT: Abscess HISTORY OF PRESENT ILLNESS: 32-year-old female who presented to the emergency room due to abscesses on bilateral arms. Patient has a history of IV drug abuse. She reports she goes to [place] daily for Methadone. She has an abscess to her left antecubital area, top of left hand, and right wrist. Patient reports some purulent drainage to left hand prior to admission. Patient examined at the bedside. Patient states her pain is tolerable at this time. She remains on IV antibiotics. Infectious disease is following. She is scheduled for I&D of bilateral arm abscesses today. PHYSICAL EXAM: VITAL SIGNS: Currently stable. GENERAL: Well-developed in no acute distress. HEENT: No sclera icterus. Extraocular movements grossly intact. Moist buccal mucosa. Head is atraumatic, normocephalic. Hears conversational speech. No nasal drainage. NECK: Supple without lymphadenopathy. CHEST: Non-labored respirations and equal bilateral excursions. CARDIOVASCULAR: Regular rate with regular rhythm. Palpable 2+ radial pulses. ABDOMEN: Soft. Nondistended. No peritonitis. No abdominal tenderness. MUSCULOSKELETAL: No clubbing, cyanosis or edema. NEUROLOGIC: No focal or lateralizing signs. Cranial nerves II through XII grossly intact. PSYCH: Appropriate affect. Alert and oriented to person, place and time. SKIN: Well perfused. Good skin turgor. Abscesses present to left antecubital area, top of left hand, and right wrist. LABS: Reviewed ASSESSMENT: 1. Abscesses to left antecubital region, left hand, and right wrist 2. History of IV drug abuse, patient denies current drug abuse, maintained on daily Methadone currently 3. Leukocytosis 4. History of MRSA of axilla, August 2017 5. Nicotine dependence PLAN: Continue antibiotics. Infectious disease on consult. CBC tomorrow. Patient to undergo I&D of bilateral arm abscesses today. Nurse practitioner note has been reviewed by physician. Signing provider agrees with the documented findings, assessment, and plan of care. Objective - Vital Signs Vital signs: Vital Signs Temp 98.2 F 05/16/18 07:00 Pulse 60 05/16/18 07:00 Resp 16 05/16/18 07:00 BP 103/67 05/16/18 07:00 Pulse Ox 99 05/16/18 07:00 Intake & Output 01/05/16/18 05/16/18 18:59 06:59 18:59 Intake Total 140 1790 Balance 140 1790 Intake: Intake, IV Titration 140 700 Amount Piperacillin-Tazobactam 3 200 .375 gm In Sodium Chloride 0.9% 100 ml @ 25 mls/hr IVPB Q8H [facility] Rx#: [id number] Sodium Chloride 0.9% 1, 140 000 ml @ 20 mls/hr IV . Q24H [facility] Rx#:[id number] Vancomycin 1,250 mg In 500 Sodium Chloride 0.9% 250 ml @ 125 mls/hr IVPB Q8H [facility] Rx#:[id number] Oral 1090 Other: Voiding Method Toilet # Voids 1 - Labs CBC & Chem 7: 05/15/18 06:09 05/15/18 06:09 Labs: Microbiology - Last 24 Hours (Table) 05/14/18 19:31 Blood Culture - Preliminary Blood No Growth after 24 hours
[2018-05-16] MEDS ORDERED: IV FLUID CONTINUATION 1,000 ML IV ONE (11:29)
[2018-05-16] MEDS ORDERED: PROPOFOL 10 MG/ML 20 ML VIAL IV ONE (12:31)
[2018-05-16] MEDS ORDERED: MIDAZOLAM 2 MG/2 ML VIAL ONE (12:31)
[2018-05-16] MEDS ORDERED: BUPIVACAIN-EPI 0.25%-1:200,000 30 ML VIAL SQ ONE (12:44)
--- NOTE | 2018-05-16 12:55 | P.OP ---
Date of Procedure: 05/16/18 Preoperative Diagnosis: Right wrist abscess Left hand abscess Left antecubital abscess Postoperative Diagnosis: Same Procedure(s) Performed: Incision and drainage of left antecubital abscess Incision and drainage of right hand abscess Incision and drainage of left wrist abscess Anesthesia: MAC Surgeon: Rafal Sahh Estimated Blood Loss (ml): 5 Pathology: other (Left antecubital abscess culture) Condition: stable Disposition: PACU Description of Procedure: The patient's placed on the operative table in the supine position. She received IV sedation. Her left arm, wrist and hand and right wrist were prepped and draped usual sterile fashion. The areas the abscesses were localized 1% local Xylocaine. An incision was performed over each abscess. The left antecubital abscess containing approximate 10 mL of purulent fluid this was cultured. The right wrist abscess containing 4 mL of purulent fluid and then the left hand abscess contained approximate 1 mL of purulent fluid. The left and he will abscess was cultured. Sterile dressing was applied. Patient top she will was sent to recovery in stable condition.
[2018-05-16] MEDS ORDERED: HYDROmorphone 1 MG/ML 1 ML SYRINGE IVP ONE ×4 (13:15→13:31)
[2018-05-16] MEDS ORDERED: KETOROLAC 30 MG/ML 1 ML VIAL IVP ONE (13:30)
[2018-05-16] MEDS: IBUPROFEN 800 MG TAB PO PRN (18:16)
[2018-05-16] MEDS: SODIUM CHLORIDE 0.9% 1,000 ML IV SCH (20:17)
[2018-05-16] MEDS: NICOTINE 21MG/24HR PATCH TRANSDERM SCH (20:59)
--- NOTE | 2018-05-16 23:32 | PN ---
PROGRESS NOTE DATE OF SERVICE: 05/16/2018 REASON FOR FOLLOWUP: Bilateral arm abscesses. INTERVAL HISTORY: The patient is afebrile. The patient was taken to the OR and is status post drainage of this abscess. Patient currently complaining of pain at the site of infection and drainage. The patient denies having any chest pain, shortness of breath or cough. No abdominal pain or any diarrhea. PHYSICAL EXAMINATION: Blood pressure 133/63 with a pulse of 66, temperature 97.9. She is 95% on room air. General description is a middle-aged female lying in bed in no distress. RESPIRATORY SYSTEM: Unlabored breathing. Clear to auscultation anteriorly. HEART: S1, S2. Regular rate and rhythm. ABDOMEN: Soft. No tenderness. ARMS: Wounds are currently dressed up. No obvious drainage on the dressing. LABS: White count 12.5. Cultures are currently pending. DIAGNOSTIC IMPRESSION AND PLAN: Patient with bilateral arm abscesses, status post drainage. Cultures are currently pending. We will keep the patient on vancomycin and Zosyn, adjusting it further based on the culture report. Continue with supportive care. MMODL / IJN: [id number] /
--- NOTE | 2018-05-16 23:42 | P.PN ---
Subjective Progress Note Date: 05/16/18 Progress note being dictated for Dr. Morocho. Interval history:32-year-old female with known history of IV drug use and is on methadone for drug use rehabilitation came in with complaints of multiple areas of swelling and abscesses in the right dorsal aspect of the wrist area along with the left forearm on the flexor surface of the forearm as well as close to antecubital foci area all of these abscesses but tender with local is of temperature redness. Patient was started on maximizing clindamycin and Zosyn and infectious disease was consulted and surgery was consulted for drainage abscesses. She doesn't have any fevers does have leukocytosis patient was then resumed on methadone. Urine drug screen is being obtained. 05/16/2018 maintained on IV antibiotics. Evaluated by surgery and scheduled for I&D today of multiple abscesses. Pain controlled. Afebrile. Denies chest pain, palpitations or shortness of breath. Objective - Vital Signs Vital signs: Vital Signs Temp 97.9 F 05/16/18 14:00 Pulse 66 05/16/18 14:45 Resp 16 05/16/18 14:00 BP 99/62 05/16/18 14:45 Pulse Ox 95 05/16/18 14:00 Intake & Output 05/16/18 05/16/18 05/17/18 06:59 18:59 06:59 Intake Total 1790 396 Output Total 10 Balance 1790 386 Intake: IV 100 Intake, IV Titration 700 Amount Piperacillin-Tazobactam 3 200 .375 gm In Sodium Chloride 0.9% 100 ml @ 25 mls/hr IVPB Q8H [facility] Rx#: [id number] Vancomycin 1,250 mg In 500 Sodium Chloride 0.9% 250 ml @ 125 mls/hr IVPB Q8H [facility] Rx#:[id number] Oral 1090 296 Output: Estimated Blood Loss 10 Other: # Voids 1 3 - Exam GENERAL: The patient is alert and oriented x3, not in any acute distress. HEENT: Pupils are round and equally reacting to light. EOMI. No scleral icterus. No conjunctival pallor. Normocephalic. CARDIOVASCULAR: S1 and S2 present. No murmurs, rubs, or gallops. PULMONARY: Chest is clear to auscultation, no wheezing or crackles. ABDOMEN: Soft, nontender, nondistended, normoactive bowel sounds. No palpable organomegaly. MUSCULOSKELETAL: No joint swelling or deformity. EXTREMITIES: No cyanosis, clubbing, or pedal edema. NEUROLOGICAL: Gross neurological examination did not reveal any focal deficits. SKIN: As mentioned in the history about 3 abscess in both arms; right wrist, left hand and left antecubital. - Labs CBC & Chem 7: 05/15/18 06:09 05/15/18 06:09 Labs: Microbiology - Last 24 Hours (Table) 05/14/18 19:31 Blood Culture - Preliminary Blood No Growth after 48 hours 05/16/18 13:02 Gram Stain - Preliminary Arm - Left Wound Culture - Preliminary 05/16/18 13:00 Gram Stain - Preliminary Arm - Left Wound Culture - Preliminary 05/16/18 13:02 Anaerobic Culture - Preliminary Arm - Left 05/16/18 13:00 Anaerobic Culture - Preliminary Arm - Left Assessment and Plan Assessment: -Multiple abscesses in bilateral upper extremities, left antecubital, left hand and right wrist, I&D pending. -History of IV drug use although she denies using any recent drug use. -Nicotine abuse -History of MRSA of axilla August 2017 Plan: Continue on current medication regime ,monitoring and symptomatic treatment. Blood cultures pending. I&D and multiple abscesses pending. Maintain IV antibiotics as per infectious disease. Follow closely with surgery and infectious disease. Further recommendations to follow. The impression and plan of care has been dictated as directed. : I performed a history and examination of this patient, discussed the same with the dictator. I agree with the dictator's note ,documented as a scribe. Any additional findings or plans will be noted.
[2018-05-17] MEDS: VANCOMYCIN 1,250 MG in SODIUM CHLORIDE 0.9% 250 ML IVPB SCH ×3 (05:43→22:24)
[2018-05-17] MEDS: PIPERACILLIN-TAZOBACTAM 3.375 GM in SODIUM CHLORIDE 0.9% 100 ML IVPB SCH ×2 (05:43→17:23)
[2018-05-17] MEDS: IBUPROFEN 800 MG TAB PO PRN ×2 (07:29→22:23)
[2018-05-17 07:34] LABS: Basophils % (A) 0 %; Eosinophils # (A) 0.2 k/uL (0-0.7); Eosinophils % (A) 2 %; HCT 36.2 % (34.0-46.0); HGB 11.8 gm/dL (11.4-16.0); Lymphocytes # (A) 1.9 k/uL (1.0-4.8); Lymphocytes % (A) 24 %; MCH 28.3 pg (25.0-35.0); MCHC 32.7 g/dL (31.0-37.0); MCV 86.5 fL (80.0-100.0); Mean Platelet Volume 7.3; Monocytes # (A) 0.3 k/uL (0-1.0); Monocytes % (A) 4 %; Neutrophils # (A) 5.6 k/uL (1.3-7.7); Neutrophils % (A) 68 %; Platelet Count 264 k/uL (150-450); RBC 4.19 m/uL (3.80-5.40); RDW 15.4 % (11.5-15.5); WBC 8.2 k/uL (3.8-10.6)
[2018-05-17 07:55] LABS: Anion Gap 6 mmol/L; Blood Urea Nitrogen 12 mg/dL (7-17); Calcium 8.9 mg/dL (8.4-10.2); Carbon Dioxide 24 mmol/L (22-30); Chloride 113 mmol/L (98-107); Glucose 97 mg/dL (74-99); Potassium 4.4 mmol/L (3.5-5.1); Sodium 143 mmol/L (137-145)
[2018-05-17] MEDS: FAMOTIDINE 20 MG TAB PO SCH ×2 (08:09→22:24)
[2018-05-17] MEDS: METHADONE 10 MG TAB PO SCH (08:09)
[2018-05-17] MEDS: NICOTINE 21MG/24HR PATCH TRANSDERM SCH (08:09)
[2018-05-17] MEDS ORDERED: KETOROLAC 30 MG/ML 1 ML VIAL IVP STA (08:47)
--- NOTE | 2018-05-17 11:02 | P.PN ---
Subjective Progress Note Date: 05/17/18 CHIEF COMPLAINT: Abscess HISTORY OF PRESENT ILLNESS: 32-year-old female who presented to the emergency room due to abscesses on bilateral arms. Patient has a history of IV drug abuse. She reports she goes to [place] daily for Methadone. Patient underwent I&D of bilateral arm abscesses yesterday. Cultures are positive for presumptive MRSA. Infectious disease is following. Patient reports severe pain to left AC abscess this morning. PHYSICAL EXAM: VITAL SIGNS: Currently stable. GENERAL: Well-developed in no acute distress. HEENT: No sclera icterus. Extraocular movements grossly intact. Moist buccal mucosa. Head is atraumatic, normocephalic. Hears conversational speech. No nasal drainage. NECK: Supple without lymphadenopathy. CHEST: Non-labored respirations and equal bilateral excursions. CARDIOVASCULAR: Regular rate with regular rhythm. Palpable 2+ radial pulses. ABDOMEN: Soft. Nondistended. No peritonitis. No abdominal tenderness. MUSCULOSKELETAL: No clubbing, cyanosis or edema. NEUROLOGIC: No focal or lateralizing signs. Cranial nerves II through XII grossly intact. PSYCH: Appropriate affect. Alert and oriented to person, place and time. SKIN: Well perfused. Good skin turgor. Dressing to right wrist and left hand clean dry and intact. Dressing to left AC saturated with serosanguineous drainage. LABS: Reviewed ASSESSMENT: 1. Abscesses to left antecubital region, left hand, and right wrist, s/p I & D, cultures positive for presumptive MRSA 2. History of IV drug abuse, patient denies current drug abuse, maintained on daily Methadone currently 3. Leukocytosis, resolved 4. History of MRSA of axilla, August 2017 5. Nicotine dependence PLAN: Continue antibiotics. Infectious disease on consult. Wound care to bilateral arms. Discharge planning per medicine. Nurse practitioner note has been reviewed by physician. Signing provider agrees with the documented findings, assessment, and plan of care. Objective - Vital Signs Vital signs: Vital Signs Temp 98 F 05/17/18 07:45 Pulse 68 05/17/18 07:45 Resp 16 05/17/18 07:45 BP 111/70 05/17/18 07:45 Pulse Ox 100 05/17/18 07:45 Intake & Output 05/16/18 05/17/18 05/17/18 18:59 06:59 18:59 Intake Total 396 296 Output Total 10 Balance 386 296 Intake: IV 100 Oral 296 296 Output: Estimated Blood Loss 10 Other: # Voids 3 - Labs CBC & Chem 7: 05/17/18 07:02 05/17/18 07:02 Labs: Abnormal Lab Results - Last 24 Hours (Table) 05/17/18 Range/Units 07:02 Chloride 113 H (98-107) mmol/L Microbiology - Last 24 Hours (Table) 05/16/18 13:02 Gram Stain - Preliminary Arm - Left Wound Culture - Preliminary Presumptive MRSA 05/16/18 13:00 Gram Stain - Preliminary Arm - Left Wound Culture - Preliminary Presumptive MRSA 05/14/18 19:31 Blood Culture - Preliminary Blood No Growth after 48 hours 05/16/18 13:02 Anaerobic Culture - Preliminary Arm - Left 05/16/18 13:00 Anaerobic Culture - Preliminary Arm - Left
[2018-05-17 21:17] LABS: Hepatitis A Antibody IgM Non-Reactive (Non-Reactive); Hepatitis B Core IgM Non-Reactive (Non-Reactive)
[2018-05-17] MEDS: SODIUM CHLORIDE 0.9% 1,000 ML IV SCH (22:24)
--- NOTE | 2018-05-17 22:39 | PN ---
PROGRESS NOTE DATE OF SERVICE: 05/17/2018 REASON FOR FOLLOWUP: Bilateral hand MRSA abscesses, status post drainage. INTERVAL HISTORY: The patient is afebrile. She still has some pain to the areas that have been drained on both hands and arms. The patient denies having any chest pain or shortness of breath or cough. No abdominal pain. No diarrhea. PHYSICAL EXAMINATION: Blood pressure is 110/68, pulse of 69, temperature 98.7. She is 99% on room air. General description is a middle-aged female up in the bed in no distress. RESPIRATORY SYSTEM: Unlabored breathing. Clear to auscultation anteriorly. HEART: S1, S2. Regular rate and rhythm. ABDOMEN: Soft. No tenderness. The hands are currently dressed up. No obvious drainage on the dressing. LABS: White count normalized to 8.2 with a BUN of 12, creatinine 0.64. Cultures with presumptive MRSA; sensitivities pending. Blood culture has been negative. DIAGNOSTIC IMPRESSION AND PLAN: Patient with bilateral arm antecubital fossa abscesses with the left status post drainage. Culture with presumptive MRSA. Patient is currently covered with vancomycin. Will discontinue Zosyn. Discharge antibiotic will depend upon the culture report. Continue with supportive care. MMODL / IJN: [id number] /
[2018-05-18] MEDS: VANCOMYCIN 1,250 MG in SODIUM CHLORIDE 0.9% 250 ML IVPB SCH ×2 (05:31→14:19)
[2018-05-18 08:03] LABS: Anion Gap 4 mmol/L; Blood Urea Nitrogen 11 mg/dL (7-17); Calcium 8.9 mg/dL (8.4-10.2); Carbon Dioxide 27 mmol/L (22-30); Chloride 111 mmol/L (98-107); Glucose 87 mg/dL (74-99); Potassium 4.6 mmol/L (3.5-5.1); Sodium 142 mmol/L (137-145)
[2018-05-18] MEDS: METHADONE 10 MG TAB PO SCH (08:50)
[2018-05-18] MEDS: NICOTINE 21MG/24HR PATCH TRANSDERM SCH (08:50)
[2018-05-18] MEDS: FAMOTIDINE 20 MG TAB PO SCH (08:50)
--- NOTE | 2018-05-18 10:51 | P.PN ---
Subjective Progress Note Date: 05/18/18 CHIEF COMPLAINT: Abscess HISTORY OF PRESENT ILLNESS: 32-year-old female who presented to the emergency room due to abscesses on bilateral arms. Patient has a history of IV drug abuse. She reports she goes to [facility] daily for Methadone. Patient underwent I&D of bilateral arm abscesses 05/16/2018. Cultures are positive for presumptive MRSA. Infectious disease is following. Patient reports her pain is tolerable this morning. PHYSICAL EXAM: VITAL SIGNS: Currently stable. GENERAL: Well-developed in no acute distress. HEENT: No sclera icterus. Extraocular movements grossly intact. Moist buccal mucosa. Head is atraumatic, normocephalic. Hears conversational speech. No nasal drainage. NECK: Supple without lymphadenopathy. CHEST: Non-labored respirations and equal bilateral excursions. CARDIOVASCULAR: Regular rate with regular rhythm. Palpable 2+ radial pulses. ABDOMEN: Soft. Nondistended. No peritonitis. No abdominal tenderness. MUSCULOSKELETAL: No clubbing, cyanosis or edema. NEUROLOGIC: No focal or lateralizing signs. Cranial nerves II through XII grossly intact. PSYCH: Appropriate affect. Alert and oriented to person, place and time. SKIN: Well perfused. Good skin turgor. Dressings to bilateral arms clean dry intact. LABS: Reviewed ASSESSMENT: 1. Abscesses to left antecubital region, left hand, and right wrist, s/p I & D, cultures positive for presumptive MRSA 2. History of IV drug abuse, patient denies current drug abuse, maintained on daily Methadone currently 3. Leukocytosis, resolved 4. History of MRSA of axilla, August 2017 5. Nicotine dependence PLAN: Continue antibiotics. Infectious disease on consult. Wound care to bilateral arms. Discharge planning per medicine. We will sign off. Nurse practitioner note has been reviewed by physician. Signing provider agrees with the documented findings, assessment, and plan of care. Objective - Vital Signs Vital signs: Vital Signs Temp 98.1 F 05/18/18 08:50 Pulse 60 05/18/18 08:50 Resp 18 05/18/18 08:50 BP 109/71 05/18/18 08:50 Pulse Ox 100 05/18/18 08:50 Intake & Output 05/17/18 05/18/18 05/18/18 18:59 06:59 18:59 Intake Total 2860 Balance 2860 Intake: Intake, IV Titration 700 Amount Sodium Chloride 0.9% 1, 200 000 ml @ 20 mls/hr IV . Q24H [facility] Rx#:[id number] Vancomycin 1,250 mg In 500 Sodium Chloride 0.9% 250 ml @ 125 mls/hr IVPB Q8H [facility] Rx#:[id number] Oral 2160 Other: Voiding Method Toilet # Voids 2 1 # Bowel Movements 1 - Labs CBC & Chem 7: 05/17/18 07:02 05/18/18 07:01 Labs: Abnormal Lab Results - Last 24 Hours (Table) 05/17/18 05/18/18 Range/Units 07:02 07:01 Chloride 111 H (98-107) mmol/L Hep C IgG Ab Reactive H (Non-Reactive) Microbiology - Last 24 Hours (Table) 05/14/18 19:31 Blood Culture - Preliminary Blood No Growth after 72 hours 05/16/18 13:00 Gram Stain - Preliminary Arm - Left Wound Culture - Preliminary Presumptive MRSA 05/16/18 13:02 Gram Stain - Preliminary Arm - Left Wound Culture - Preliminary Presumptive MRSA
[2018-05-18 15:55] VITALS: BP 107/71; PULSE 66; RESP 16; TEMP 98.5
--- NOTE | 2018-05-18 17:32 | PN ---
PROGRESS NOTE DATE OF SERVICE: 05/18/2018 REASON FOR FOLLOWUP: Bilateral arm and hand MRSA abscesses. INTERVAL HISTORY: The patient is currently afebrile. She is breathing comfortably. Denies having any chest pain, shortness of breath or cough. No abdominal pain. Pain to the area that has been drained has improved. No further drainage. PHYSICAL EXAMINATION: Her blood pressure is 107/71 with a pulse of 56, temperature 98.5. She is 96% on room air. General description is a middle-aged female up in the room in no distress. RESPIRATORY SYSTEM: Unlabored breathing. Clear to auscultation anteriorly. HEART: S1, S2. Regular rate and rhythm. ABDOMEN: Soft. The wounds on the left ankle are currently healing well with no significant purulent drainage. Surrounding redness has improved. LABS: Creatinine 0.62. Potassium 4.6. DIAGNOSTIC IMPRESSION AND PLAN: Patient with bilateral antecubital fossa and left hand dorsum abscesses, status post drainage. Culture with MRSA. Antibiotic will be transitioned to Bactrim DS one twice a day for 10 days with close outpatient followup. Prescription was sent to the pharmacy. MMODL / IJN: [id number] /
--- NOTE | 2018-05-18 20:39 | P.PN ---
Subjective Progress Note Date: 05/18/18 Progress note being dictated for Dr. Morocho. Interval history:32-year-old female with known history of IV drug use and is on methadone for drug use rehabilitation came in with complaints of multiple areas of swelling and abscesses in the right dorsal aspect of the wrist area along with the left forearm on the flexor surface of the forearm as well as close to antecubital foci area all of these abscesses but tender with local is of temperature redness. Patient was started on maximizing clindamycin and Zosyn and infectious disease was consulted and surgery was consulted for drainage abscesses. She doesn't have any fevers does have leukocytosis patient was then resumed on methadone. Urine drug screen is being obtained. 05/16/2018 maintained on IV antibiotics. Evaluated by surgery and scheduled for I&D today of multiple abscesses. Pain controlled. Afebrile. Denies chest pain, palpitations or shortness of breath. 05/17/2018 status post I&D of multiple abscesses, tolerated well. Pain controlled. Cultures reporting presumptive MRSA. Maintained on IV antibiotics as per infectious disease. Denies chest pain, palpitations or shortness of breath. Good diet intake with no nausea vomiting or diarrhea. Afebrile, normal WBC. Objective - Vital Signs Vital signs: Vital Signs Temp 98.7 F 05/17/18 14:50 Pulse 69 05/17/18 14:50 Resp 16 05/17/18 14:50 BP 110/68 05/17/18 14:50 Pulse Ox 99 05/17/18 14:50 Intake & Output 05/16/18 05/17/18 05/17/18 18:59 06:59 18:59 Intake Total 396 296 Output Total 10 Balance 386 296 Intake: IV 100 Oral 296 296 Output: Estimated Blood Loss 10 Other: # Voids 3 2 # Bowel Movements 1 - Exam GENERAL: The patient is sitting up in bed, no acute distress, alert and oriented x3. HEENT: Pupils are round and equally reacting to light. EOMI. No scleral icterus. No conjunctival pallor. Normocephalic. CARDIOVASCULAR: S1 and S2 present. No murmurs, rubs, or gallops. PULMONARY: Chest is clear to auscultation, no rhonchi, no wheezing or crackles. ABDOMEN: Soft, nontender, nondistended, normoactive bowel sounds. No palpable organomegaly EXTREMITIES: No cyanosis, clubbing, or pedal edema. NEUROLOGICAL: Gross neurological examination did not reveal any focal deficits. SKIN: right wrist, left hand and left antecubital dressings clean dry and intact. - Labs CBC & Chem 7: 05/17/18 07:02 05/18/18 07:01 Labs: Abnormal Lab Results - Last 24 Hours (Table) 05/17/18 Range/Units 07:02 Chloride 113 H (98-107) mmol/L Microbiology - Last 24 Hours (Table) 05/16/18 13:00 Gram Stain - Preliminary Arm - Left Wound Culture - Preliminary Presumptive MRSA 05/16/18 13:02 Gram Stain - Preliminary Arm - Left Wound Culture - Preliminary Presumptive MRSA 05/14/18 19:31 Blood Culture - Preliminary Blood No Growth after 48 hours 05/16/18 13:02 Anaerobic Culture - Preliminary Arm - Left 05/16/18 13:00 Anaerobic Culture - Preliminary Arm - Left Assessment and Plan Assessment: -Multiple abscesses in bilateral upper extremities, left antecubital, left hand and right wrist, status post I&D. Cultures reporting presumptive MRSA. -History of IV drug use although she denies using any recent drug use. -Nicotine abuse -History of MRSA of axilla August 2017 Plan: Continue on current medication regime ,monitoring and symptomatic treatment. Maintain IV antibiotics as per infectious disease. Discharge planning in progress for tomorrow pending final culture results. Follow closely with surgery and infectious disease. Further recommendations to follow. The impression and plan of care has been dictated as directed. : I performed a history and examination of this patient, discussed the same with the dictator. I agree with the dictator's note ,documented as a scribe. Any additional findings or plans will be noted.
--- NOTE | 2018-05-19 07:06 | DS ---
DISCHARGE SUMMARY FINAL DIAGNOSES: 1. Multiple abscesses in the bilateral upper extremities, left antecubital, left hand and as well as right wrist, status post incision and drainage showing possible methicillin-resistant Staphylococcus aureus. 2. History IV drug abuse. 3. History of nicotine dependence. 4. History of methicillin-resistant Staphylococcus aureus in the axilla. DISCHARGE DISPOSITION: The patient will be discharged in stable condition with guarded prognosis. HISTORY OF PRESENT ILLNESS: This 32-year-old woman with a past medical history of multiple medical problems admitted with multiple abscesses secondary to IV drug abuse. Patient underwent incision and drainage. MRSA was grown from the culture. Dr. Bernal saw the patient from infectious disease point, cleared the patient for discharge in stable condition with guarded prognosis. On exam, vitals are stable. CARDIOVASCULAR: S1, S2 muffled. ABDOMEN: Soft. NERVOUS SYSTEM: No focal deficits. DISCHARGE ADVICE AND MEDICATIONS: 1. Diet is cardiac. 2. Activity limited until followup. 3. Follow up with Fazal bates in 1 week. 4. Follow up with Dr. Bernal as advised. Medications are: 1. Tylenol 650 q.6 p.r.n. 2. Pepcid 20 mg p.o. b.i.d. 3. Motrin 800 mg p.o. t.i.d. p.r.n. 4. Dolophine 105 mg p.o. daily. 5. Habitrol 21. 6. Bactrim DS 1 p.o. b.i.d. for 10 days. MMODL / IJN: [id number] /
== END 2018-05-18 17:30 | disposition home or self-care (01) | DRG 603 ==
LOC: EC 18:40 → 4SSUR 22:42
PROVIDERS: ADMIT Internal Medicine; ATTEND Internal Medicine
PROC: 0H9DXZZ Drainage of Right Lower Arm Skin, External Approach (ICD-10-PCS; 2018-05-16)
PROC: 0H9EXZZ Drainage of Left Lower Arm Skin, External Approach (ICD-10-PCS; 2018-05-16)
PROC: 0H9FXZZ Drainage of Right Hand Skin, External Approach (ICD-10-PCS; principal; 2018-05-16 07:30)
DX: L02.512 Cutaneous abscess of left hand (principal); L02.414 Cutaneous abscess of left upper limb; L02.413 Cutaneous abscess of right upper limb; L03.114 Cellulitis of left upper limb; B18.2 Chronic viral hepatitis C; B95.62 Methicillin resistant Staphylococcus aureus infection as the cause of diseases classified elsewhere; F11.10 Opioid abuse, uncomplicated; F17.210 Nicotine dependence, cigarettes, uncomplicated; F32.9 Major depressive disorder, single episode, unspecified; F41.9 Anxiety disorder, unspecified; G40.909 Epilepsy, unspecified, not intractable, without status epilepticus; M41.9 Scoliosis, unspecified; M79.7 Fibromyalgia; G43.909 Migraine, unspecified, not intractable, without status migrainosus; Z86.14 Personal history of Methicillin resistant Staphylococcus aureus infection; Z90.49 Acquired absence of other specified parts of digestive tract; Z71.51 Drug abuse counseling and surveillance of drug abuser; Z86.69 Personal history of other diseases of the nervous system and sense organs
CPT/HCPCS: 36415; 80048; 80053; 80074; 80202; 81001; 81025; 82248; 85025; 87040; 87070; 87075; 87077; 87186; 87205; 87324; 96365; 96367; 99284

== ENCOUNTER 2018-06-17 22:23 | Emergency (ER) | payer OTHER ==
[2018-06-17 22:27] VITALS: RESP 18; TEMP 98.2
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
[2018-06-17] MEDS ORDERED: AMOXICILLIN 875 MG TAB PO STA (22:44)
[2018-06-17] MEDS ORDERED: KETOROLAC 30 MG/ML 1 ML VIAL IM STA (22:44)
[2018-06-17 23:36] VITALS: BP 103/64; PULSE 72
== END 2018-06-17 23:38 | disposition home or self-care (01) ==
LOC: EC 22:23
DX: H66.91 Otitis media, unspecified, right ear (principal); R07.0 Pain in throat; R59.0 Localized enlarged lymph nodes; M54.2 Cervicalgia; F17.200 Nicotine dependence, unspecified, uncomplicated; Z86.14 Personal history of Methicillin resistant Staphylococcus aureus infection
CPT/HCPCS: 99282; 96372; J1885

== ENCOUNTER → 2018-09-16 | Outpatient (CLI) | payer OTHER | END | disposition home or self-care (01) | LOC: LABWHC1 08:35 | PROVIDERS: ATTEND Family Medicine | DX: F11.20 Opioid dependence, uncomplicated (principal) | CPT/HCPCS: 36415; 80358 ==

== ENCOUNTER 2019-01-18 17:42 | Emergency (ER) | payer OTHER ==
[2019-01-18 18:13] VITALS: RESP 18; TEMP 98.6
[2019-01-18] MEDS ORDERED: SODIUM CHLORIDE 0.9% 1,000 ML IV ONE (18:19)
--- NOTE | 2019-01-18 19:32 | US ---
EXAMINATION TYPE: Transabdominal DATE OF EXAM: 01/18/2019 7:19 PM COMPARISON: NONE CLINICAL HISTORY: pain. Pain x 2 hours. Heavy vaginal bleeding. LMP unknown. 2 C-Sections. . EXAM PERFORMED: Transabdominal (TA). Patient denied transvaginal imaging. EXAM MEASUREMENTS: GESTATIONAL AGE / DATING Physician Established: (11 weeks/4 days) EDC: 08/05/2019 Dates by LMP: Unknown Dates by First Scan: This is first scan Dates by Current Scan for: Hyperechoic areas seen in gestational sac. No definite pole or heart rate detected. Gestational sac appears to be in MIKE. MATERNAL ANATOMY Uterus: 9.5 x 5.7 x 5.2 Right Ovary: 3.8 x 1.9 x 1.2 cm. Left Ovary: not seen with certainty Post CDS / Adnexa: appears wnl Presence of free fluid: none seen Presence of corpus luteal cyst: none Presence of subchorionic bleed: not seen GESTATION / SURVEY CRL: possible pole (6 weeks/4 days) MSD: 2.59 cm. (7 weeks/2 days) Yolk Sac (normal less than 6mm): not seen Heart Rate: not detected IUP: Gestational sac seen in lower uterine segment with hyperechoic area. No heart tones detected. Date of LMP: Unknown IMPRESSION: Malpositioned and deformed lower uterine segment gestational sac with internal echogenicity that coul d be demise of approximately 6 weeks and 4 days. No adnexal mass.
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
[2019-01-18 19:59] LABS: Basophils % (A) 0 %; Eosinophils # (A) 0.2 k/uL (0-0.7); Eosinophils % (A) 2 %; Lymphocytes # (A) 1.5 k/uL (1.0-4.8); Lymphocytes % (A) 16 %; MCH 29.7 pg (25.0-35.0); MCHC 34.3 g/dL (31.0-37.0); MCV 86.7 fL (80.0-100.0); Mean Platelet Volume 6.9; Monocytes # (A) 0.4 k/uL (0-1.0); Monocytes % (A) 4 %; Neutrophils # (A) 7.1 k/uL (1.3-7.7); Neutrophils % (A) 76 %; Platelet Count 217 k/uL (150-450); RBC 4.39 m/uL (3.80-5.40); RDW 12.5 % (11.5-15.5); WBC 9.3 k/uL (3.8-10.6)
[2019-01-18 20:13] LABS: ALT 16 U/L (9-52); AST 23 U/L (14-36); African American GFR (CKD) >90 (>60 ml/min/1.73 sqM); Albumin 4.4 g/dL (3.5-5.0); Alkaline Phosphatase 49 U/L (38-126); Anion Gap 11 mmol/L; Blood Urea Nitrogen 12 mg/dL (7-17); Calcium 9.7 mg/dL (8.4-10.2); Carbon Dioxide 20 mmol/L (22-30); Chloride 107 mmol/L (98-107); Glucose 92 mg/dL (74-99); Potassium 4.3 mmol/L (3.5-5.1); Sodium 138 mmol/L (137-145); Total Bilirubin 0.3 mg/dL (0.2-1.3); Total Protein 7.4 g/dL (6.3-8.2)
[2019-01-18 20:55] VITALS: BP 107/67; PULSE 66
[2019-01-18 21:00] LABS: HCG,Qualitative Serum Detected
[2019-01-18 21:07] LABS: RBC,Urine >182 /hpf (0-5)
[2019-01-18 21:14] LABS: Appearance,Urine Bloody (Clear); Color,Urine Red
[2019-01-19 14:39] LABS: C. trachomatis,PCR Negative (Neg,Equiv); Chlamydia trachomatis Source Vagina
[2019-01-19 14:45] LABS: N. gonorrhoeae,PCR Negative (Neg,Equiv); Neisseria Source Vagina
== END 2019-01-18 22:18 | disposition home or self-care (01) ==
LOC: EC 17:42
DX: O03.9 Complete or unspecified spontaneous abortion without complication (principal); O99.89 Other specified diseases and conditions complicating pregnancy, childbirth and the puerperium; M79.7 Fibromyalgia; Z87.39 Personal history of other diseases of the musculoskeletal system and connective tissue; Z86.14 Personal history of Methicillin resistant Staphylococcus aureus infection; Z87.891 Personal history of nicotine dependence; Z79.891 Long term (current) use of opiate analgesic; Z3A.11 11 weeks gestation of pregnancy
CPT/HCPCS: 36415; 76801; 80053; 81001; 81025; 84702; 84703; 85025; 86900; 86901; 87491; 87591; 87808; 96360; 96361; 99284

== ENCOUNTER → 2021-03-17 | Outpatient (CLI) | payer OTHER | END | disposition home or self-care (01) | LOC: LABWHC1 07:17 | PROVIDERS: ATTEND Family Medicine | DX: F11.20 Opioid dependence, uncomplicated (principal) | CPT/HCPCS: 36415; G0480; 80358 ==

== ENCOUNTER → 2022-08-11 | Outpatient (CLI) | payer OTHER ==
[2022-08-11 21:57] LABS: Basophils # (A) 0.02 X 10*3/uL (0.00-0.10); Basophils % (A) 0.4 %; Eosinophils # (A) 0.14 X 10*3/uL (0.04-0.35); Eosinophils % (A) 2.6 %; HCT 38.6 % (37.2-46.3); HGB 12.2 g/dL (12.0-15.0); Immature Grans, Automated 0.2 %; Lymphocytes # (A) 2.21 X 10*3/uL (0.90-5.00); Lymphocytes % (A) 40.4 %; MCH 27.8 pg (27.0-32.0); MCHC 31.6 g/dL (32.0-37.0); MCV 87.9 fL (80.0-97.0); Mean Platelet Volume 11.5 fL (9.5-12.2); Monocytes # (A) 0.33 X 10*3/uL (0.20-1.00); NRBC Per 100 WBC 0 /100 WBCS (0.0-0.0); Neutrophils # (A) 2.76 X 10*3/uL (1.80-7.70); Neutrophils % (A) 50.4 %; Platelet Count 275 X 10*3/uL (140-440); RBC 4.39 X 10*6/uL (4.10-5.20); RDW 12.8 % (11.5-14.5); WBC 5.47 X 10*3/uL (4.50-10.00)
[2022-08-11 22:23] LABS: Erythrocyte Sedimentation Rate 14 mm/Hr (0-20)
[2022-08-11 23:23] LABS: ALT 30 U/L (8-44); AST 21 U/L (13-35); African American GFR (CKD) 96.2 (60.0-200.0); Albumin 4.4 g/dL (3.8-4.9); Albumin/Globulin Ratio 1.63 (1.60-3.17); Alkaline Phosphatase 77 U/L (41-126); BUN/Creat Ratio 20.72 Ratio (12.00-20.00); Blood Urea Nitrogen 18.3 mg/dL (9.0-27.0); Calcium 9.5 mg/dL (8.7-10.3); Carbon Dioxide 19.8 mmol/L (20.0-27.5); Chloride 104 mmol/L (96-109); Globulin 2.7 g/dL (1.6-3.3); Glucose 111 mg/dL (70-110); Potassium 4.2 mmol/L (3.5-5.5); Sodium 139 mmol/L (135-145); Total Bilirubin <0.15 mg/dL (0.30-1.20); Total Protein 7.1 g/dL (6.2-8.2)
[2022-08-12 01:27] LABS: Rheumatoid Factor, Qnt <10 IU/mL (0-15)
== END | disposition home or self-care (01) ==
LOC: LABWHC1 15:15
PROVIDERS: ATTEND Nurse Practitioner Acute Care
DX: H53.8 Other visual disturbances (principal); G43.909 Migraine, unspecified, not intractable, without status migrainosus; G93.5 Compression of brain; R42 Dizziness and giddiness; R44.9 Unspecified symptoms and signs involving general sensations and perceptions
CPT/HCPCS: 36415; 80053; 82306; 82607; 84207; 84439; 84443; 84480; 85025; 85652; 86038; 86039; 86140; 86431

== ENCOUNTER 2023-01-18 13:23 | Emergency (ER) | payer OTHER ==
[2023-01-18 14:09] VITALS: BP 116/68; PULSE 73; RESP 16; TEMP 98.3
[2023-01-18] MEDS ORDERED: KETOROLAC 15 MG/ML 1 ML VIAL IM STA (15:36)
[2023-01-18] MEDS ORDERED: ORPHENADRINE 30 MG/ML 2 ML VIAL IM STA (15:36)
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
== END 2023-01-18 18:16 | disposition home or self-care (01) ==
LOC: EC 13:23
DX: J06.9 Acute upper respiratory infection, unspecified (principal); B34.9 Viral infection, unspecified; F17.290 Nicotine dependence, other tobacco product, uncomplicated; F11.90 Opioid use, unspecified, uncomplicated; Z20.822 Contact with and (suspected) exposure to COVID-19; Z90.49 Acquired absence of other specified parts of digestive tract
CPT/HCPCS: 87636; 99284; 96372 ×2; J2360; J1885

== ENCOUNTER 2023-04-10 12:40 | Emergency (ER) | payer OTHER ==
[2023-04-10 13:22] VITALS: RESP 18
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
[2023-04-10] MEDS ORDERED: ONDANSETRON 4 MG/2 ML VIAL IVP STA (14:34)
[2023-04-10] MEDS ORDERED: KETOROLAC 15 MG/ML 1 ML VIAL IVP STA (14:34)
[2023-04-10] MEDS ORDERED: SODIUM CHLORIDE 0.9% 1,000 ML IV STA (14:34)
[2023-04-10 14:56] LABS: Basophils % (A) 0 %; Eosinophils # (A) 0.1 k/uL (0-0.7); Eosinophils % (A) 1 %; HCT 43.8 % (34.0-46.0); HGB 14.7 gm/dL (11.4-16.0); Lymphocytes % (A) 22 %; MCH 29.5 pg (25.0-35.0); MCHC 33.5 g/dL (31.0-37.0); MCV 88.1 fL (80.0-100.0); Mean Platelet Volume 8.2; Monocytes # (A) 0.2 k/uL (0-1.0); Monocytes % (A) 3 %; Neutrophils # (A) 6.5 k/uL (1.3-7.7); Neutrophils % (A) 73 %; Platelet Count 243 k/uL (150-450); RBC 4.97 m/uL (3.80-5.40); RDW 12.7 % (11.5-15.5)
[2023-04-10 15:04] LABS: ALT 21 U/L (4-34); AST 25 U/L (14-36); African American GFR (CKD) >90 (>60 ml/min/1.73 sqM); Albumin 4.9 g/dL (3.5-5.0); Alkaline Phosphatase 65 U/L (38-126); Anion Gap 13 mmol/L; Blood Urea Nitrogen 9 mg/dL (7-17); Calcium 10.2 mg/dL (8.4-10.2); Carbon Dioxide 22 mmol/L (22-30); Chloride 103 mmol/L (98-107); Glucose 81 mg/dL (74-99); Non-African American GFR(CKD) >90 (>60 ml/min/1.73 sqM); Potassium 4.5 mmol/L (3.5-5.1); Sodium 138 mmol/L (137-145); Total Bilirubin 0.5 mg/dL (0.2-1.3); Total Protein 8.2 g/dL (6.3-8.2)
[2023-04-10 15:35] LABS: Color,Urine Orange
[2023-04-10 15:36] LABS: Appearance,Urine Slightly Cloudy (Clear); Bilirubin,Urine Negative (Negative); Blood,Urine Negative (Negative); Glucose,Urine (UA) Negative (Negative); Ketones,Urine Negative (Negative); Leukocyte Esterase,Urine Negative (Negative); Nitrite,Urine Negative (Negative); Protein,Urine Trace (Negative); Urobilinogen,Urine <2.0 mg/dL (<2.0)
[2023-04-10 15:42] LABS: Bacteria,Urine Rare /hpf; Mucus,Urine Many /hpf; RBC,Urine 3 /hpf (0-5); Squamous Epithelial Cell,Urine 11 /hpf (0-4); WBC,Urine 16 /hpf (0-5)
[2023-04-10 16:13] LABS: HCG,Qualitative Serum Not Detected
[2023-04-10] MEDS ORDERED: MORPHINE SULFATE 4 MG/ML SYRINGE IVP STA (16:19)
--- NOTE | 2023-04-10 17:35 | CT ---
EXAMINATION TYPE: CT abdomen pelvis wo con CT DLP: 512.1 mGycm, Automated exposure control for dose reduction was used. DATE OF EXAM: 04/10/2023 3:59 PM COMPARISON: None. CLINICAL INDICATION:Female, 37 years old with history of left flank pain; FLANK PAIN TECHNIQUE: Axial CT of the abdomen and pelvis. Sagittal and coronal reformats were created on a Blackberry workstation. Contrast used: mL of , (none if empty) Oral contrast used: without Oral Contrast (none if empty) FINDINGS: Exam tailored for urinary calculi. Otherwise limited study without contrast. LOWER CHEST: Unremarkable ABDOMEN LIVER: Small focus of low-attenuation in the anterior liver along the fissure for ligamentum teres, m ost consistent with focal fat. Otherwise unremarkable liver. GALLBLADDER AND BILE DUCTS: The gallbladder is surgically absent. Mild prominence of the CBD, likely due to post cholecystectomy state. PANCREAS: Unremarkable. SPLEEN: Unremarkable. ADRENAL GLANDS: Unremarkable. KIDNEYS AND URETERS: No evidence of hydronephrosis or renal calculus. The ureters are unremarkable. PELVIS BLADDER: Incompletely distended but grossly unremarkable. REPRODUCTIVE: Unremarkable. ABDOMEN & PELVIS STOMACH AND BOWEL: Stomach and small bowel are nondistended, no evidence of obstruction. Unremarkable appendix. Moderate amount of stool throughout the colon without focal inflammatory process seen. PERITONEUM/RETROPERITONEUM: No evidence of pneumoperitoneum or free fluid. VASCULATURE: No evidence of aortic aneurysm. MUSCULOSKELETAL: No acute osseous abnormalities. There is some degenerative change of the pubic symph ysis. A tiny sclerotic focus in the left iliac bone, likely bone island. No destructive lesion is see n. LYMPH NODES: No gross evidence for lymphadenopathy. SOFT TISSUE/ABDOMINAL WALL: No acute abnormality. Tiny fat-containing umbilical region hernia. IMPRESSION: No evidence of urinary tract calculi or hydronephrosis.
[2023-04-10] MEDS ORDERED: HYDROmorphone 1 MG/ML 1 ML SYRINGE IVP STA (17:42)
--- NOTE | 2023-04-10 21:10 | US ---
EXAMINATION TYPE: US transvaginal plus Dopplers DATE OF EXAM: 04/10/2023 COMPARISON: Same day CT CLINICAL INDICATION: Female, 37 years old with history of Left sided pelvic pain; Pt states pelvic pa in TECHNIQUE: Transvaginal (TV). Transvaginal sonographic images of the pelvis were acquired. Color Do ppler and spectral waveform analysis of the ovarian arteries and veins. Date of LMP: 03/26/2023 EXAM MEASUREMENTS: Uterus: 8.4 x 4.7 x 5.2 cm Endometrial Stripe: 1.1 cm Right Ovary: 3.3 x 2.2 x 2.8 cm Left Ovary: 2.2 x 2.3 x 1.9 cm 1. Uterus: Anteverted. scar noted. Otherwise, no specific abnormality. 2. Endometrium: Thickened to the upper limits of normal. 3. Right Ovary: wnl 4. Left Ovary: wnl Spectral, color and waveform doppler imaging shows good arterial and venous flow within the ovaries ; there is no evidence for ovarian torsion. 5. Bilateral Adnexa: wnl 6. Posterior cul-de-sac: wnl IMPRESSION: 1. Endometrial stripe at 1.1 cm should correspond to the secretory phase of the menstrual cycle. Evid ence of prior . 2. No sonographic evidence for ovarian torsion. 3. No pelvic free fluid.
[2023-04-10] MEDS ORDERED: ACET/COD 300 MG/30 MG STARTER PACK 6 TAB BTL PO STA (21:44)
[2023-04-10] MEDS ORDERED: CEPHALEXIN 500 MG CAP PO STA (21:44)
[2023-04-10 21:57] VITALS: BP 121/80; PULSE 72; TEMP 98.2
== END 2023-04-10 22:03 | disposition home or self-care (01) ==
LOC: EC 12:40
DX: R10.9 Unspecified abdominal pain (principal); F17.290 Nicotine dependence, other tobacco product, uncomplicated; F15.90 Other stimulant use, unspecified, uncomplicated; Z86.59 Personal history of other mental and behavioral disorders
CPT/HCPCS: 99284 ×2; 96374 ×2; 96375 ×4; 96361 ×2; 36415; 80053; 83605; 85025; 81001; 81025; 84703; 93975; 76830; 74176; J2270; J2405; J1170; J1885

== ENCOUNTER 2023-07-29 12:04 | Emergency (ER) | payer OTHER ==
[2023-07-29 12:16] VITALS: PULSE 69; TEMP 98.2
--- NOTE | 2023-07-29 12:51 | XR ---
EXAMINATION TYPE: XR KUB DATE OF EXAM: 07/29/2023 COMPARISON: 07/15/2029 HISTORY: Constipation TECHNIQUE: Abdomen is examined in frontal projection FINDINGS: Fecal debris is within the descending colon and sigmoid colon. Couple of air-fluid levels w ithin the ascending colon region. Psoas margins are normal. No mass effect is evident. Cholecystectom y clips are in the right upper quadrant. Organomegaly is not evident. IMPRESSION: 1. Mild fecal debris within the descending and sigmoid colon regions
[2023-07-29 13:22] LABS: Basophils % (A) 0 %; Eosinophils # (A) 0.1 k/uL (0-0.7); Eosinophils % (A) 1 %; HCT 40.9 % (34.0-46.0); HGB 13.4 gm/dL (11.4-16.0); Lymphocytes # (A) 2.5 k/uL (1.0-4.8); Lymphocytes % (A) 26 %; MCH 29.5 pg (25.0-35.0); MCHC 32.7 g/dL (31.0-37.0); MCV 90.2 fL (80.0-100.0); Mean Platelet Volume 8.3; Monocytes # (A) 0.3 k/uL (0-1.0); Monocytes % (A) 3 %; Neutrophils # (A) 6.8 k/uL (1.3-7.7); Neutrophils % (A) 69 %; Platelet Count 286 k/uL (150-450); RBC 4.54 m/uL (3.80-5.40); RDW 12.8 % (11.5-15.5); WBC 9.8 k/uL (3.8-10.6)
[2023-07-29] MEDS: SODIUM CHLORIDE 0.9% 1,000 ML IV STA (13:34)
[2023-07-29] MEDS: MORPHINE SULFATE 4 MG/ML SYRINGE IVP STA (13:36)
[2023-07-29] MEDS: ONDANSETRON 4 MG/2 ML VIAL IVP STA (13:36)
[2023-07-29] MEDS: PANTOPRAZOLE 40 MG/10 ML VIAL IVP STA (13:37)
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
[2023-07-29 14:04] LABS: ALT 27 U/L (4-34); AST 35 U/L (14-36); African American GFR (CKD) >90 (>60 ml/min/1.73 sqM); Albumin 4.7 g/dL (3.5-5.0); Alkaline Phosphatase 64 U/L (38-126); Amylase 50 U/L (30-110); Anion Gap 9 mmol/L; Blood Urea Nitrogen 17 mg/dL (7-17); Calcium 9.5 mg/dL (8.4-10.2); Carbon Dioxide 22 mmol/L (22-30); Chloride 107 mmol/L (98-107); Glucose 88 mg/dL (74-99); Lipase 40 U/L (23-300); Non-African American GFR(CKD) >90 (>60 ml/min/1.73 sqM); Potassium 4.6 mmol/L (3.5-5.1); Sodium 138 mmol/L (137-145); Total Bilirubin 0.5 mg/dL (0.2-1.3); Total Protein 7.7 g/dL (6.3-8.2)
[2023-07-29 14:38] LABS: Appearance,Urine Clear (Clear); Bacteria,Urine Few /hpf; Bilirubin,Urine Negative (Negative); Blood,Urine Negative (Negative); Color,Urine Yellow; Glucose,Urine (UA) Negative (Negative); Ketones,Urine Negative (Negative); Leukocyte Esterase,Urine Small (Negative); Mucus,Urine Few /hpf; Nitrite,Urine Positive (Negative); PH, Urine 5.5 (5.0-8.0); Protein,Urine Trace (Negative); Specific Gravity,Urine 1.035 (1.001-1.035); Squamous Epithelial Cell,Urine 5 /hpf (0-4); Urobilinogen,Urine <2.0 mg/dL (<2.0); WBC,Urine 3 /hpf (0-5)
[2023-07-29 14:41] LABS: Magnesium 1.9 mg/dL (1.6-2.3); Phosphorus 3.6 mg/dL (2.5-4.5)
--- NOTE | 2023-07-29 15:15 | CT ---
EXAMINATION TYPE: CT abdomen pelvis w con DATE OF EXAM: 07/29/2023 COMPARISON: 1023 HISTORY: generalized abdominal pain that radiates to the back CT DLP: 699.1 mGycm Automated exposure control for dose reduction was used. TECHNIQUE: Helical acquisition of images was performed from the lung bases through the pelvis. CONTRAST: Performed without Oral Contrast and with IV Contrast, patient injected with 100ml mL of Isovue 300. FINDINGS: The lung bases are clear. There is surgical absence of gallbladder. There is no biliary ductal dilatation. There is no focal mass or organomegaly involving the liver, pancreas, spleen or adrenal glands. There is no solid renal mass or hydronephrosis and there is homogeneous contrast enhancement of the r enal parenchyma. The caliber the abdominal aorta is normal is no retroperitoneal adenopathy or hemorr roxane. The bowel loops are normal in caliber and there is no evidence of dilatation or obstruction. No infla mmatory changes are identified in the bowel wall or mesentery. There is a moderate amount stool withi n the colon. There is no free intraperitoneal air or fluid. There is a 13.5 mm mass with peripheral enhancement. It was seen on the prior study and stable. I has a benign appearance and is likely related to the right adnexa. The osseous structures and soft tissues are intact. IMPRESSION: 1. Cholecystectomy. 2. Moderate amount of stool within the colon. 3. Small stable 13 mm well-circumscribed benign-appearing mass in the right hemipelvis likely related to the right adnexa. Transvaginal pelvic ultrasound might be useful for further evaluation if clinic ally indicated. 4. No acute changes within the abdomen or pelvis.
[2023-07-29] MEDS: SENNOSIDES-DOCUSATE SODIUM 1 EACH TAB PO STA (17:04)
[2023-07-29] MEDS: HYDROmorphone 1 MG/ML 1 ML SYRINGE IVP STA (17:04)
[2023-07-29] MEDS ORDERED: GLYCERIN CHILD SUPPOSITORY 1 EACH RECTAL STA (17:09)
[2023-07-29] MEDS: GLYCERIN ADULT SUPPOSITORY 1 EACH RECTAL STA (17:18)
[2023-07-29 17:36] VITALS: BP 123/77; RESP 16
== END 2023-07-29 17:00 | disposition home or self-care (01) ==
LOC: EC 12:04
DX: K59.00 Constipation, unspecified (principal); F11.90 Opioid use, unspecified, uncomplicated; Z87.891 Personal history of nicotine dependence
CPT/HCPCS: 36415; 80053; 82150; 83690; 83735; 84100; 85025; 81001; 74018; 74177; 99285; 96374; 96375 ×3; 96361; J2270; J2405; J1170; C9113; Q9967